=== PATIENT | male | born 1955 | race Caucasian/White ===

== ENCOUNTER → 2020-04-29 15:45 | Outpatient (CLI) | payer OTHER, SELFPAY ==
[2020-04-29 14:34] VITALS: BMI 26.2
[2020-04-29 17:34] LABS: PSA,Total - Annual Screen 2.08 ng/mL (0.00-4.00)
== END ==
PROVIDERS: PCP Internal Medicine; Referring Provider Internal Medicine; Visit Provider Internal Medicine
DX: Z12.5 Encounter for screening for malignant neoplasm of prostate (principal)
CPT/HCPCS: 36415; 84153; G0103

== ENCOUNTER → 2020-05-19 09:33 | Outpatient (CLI) | payer OTHER, SELFPAY ==
[2020-04-29 14:34] VITALS: BMI 26.2
[2020-05-19 12:58] LABS: Absolute Lymphocyte Count 1.57 X10^3/uL (0.83-4.51); Absolute Neutrophil Count 3.8 X10^3/uL (2.0-7.7); Basophil# 0.04 X10^3/uL; Basophil% 0.6 % (0-1); Eosinophil# 0.27 X10^3/uL; Eosinophils% 4.3 % (0-5); Hemoglobin 15.6 g/dL (13.0-16.5); Lymphocyte # 1.57 X10^3/ul (4.0); Mean Corp Hgb Conc 31.8 g/dL (32-36); Mean Corpuscular Hgb 28.1 pg (27.0-32.0); Mean Corpuscular Volume 88.3 fL (80-94); Mean Platelet Vol. 11.2 fl (6.2-12.0); Monocyte# 0.55 X10^3/uL; Monocyte% 8.8 % (0-10); NRBC Flagged by Analyzer 0 % (0-5); Neutrophil # 3.82 X10^3/uL (2.7-7.7); Platelet Count 177 K/mm3 (150-450); RBC Distribution Width CV 12.5 % (11.6-14.6); RBC Distribution Width SD 40.8 fl (35.1-43.9); Red Blood Count 5.55 M/mm3 (4.6-6.2); White Blood Count 6.3 K/mm3 (4.4-11.0)
[2020-05-19 13:33] LABS: Hemoglobin A1c 6.2 % (3.8-5.6)
[2020-05-19 13:46] LABS: ALB/GLOB Ratio 0.9 RATIO (0.9-2.4); AST(SGOT) 9 U/L (15-37); Alanine Aminotransfer ALT/SGPT 27 U/L (16-61); Albumin, Serum 3.6 g/dL (3.2-5.0); Alkaline Phosphatase 73 U/L (45-117); Anion Gap 3 (5-15); BUN 10 mg/dL (7-18); BUN/Creat Ratio 10.6 RATIO (10-20); Calcium,Total 9.3 mg/dL (8.5-10.1); Chloride 105 mmol/L (98-107); Cholesterol 230 mg/dL (200); Creatinine, Serum 0.94 mg/dL (0.70-1.30); EST Glomerular Filtration Rate 85 mL/min (>60); Est Glom Filt Rate - Afr Amer 103 mL/min (>60); Glucose 95 mg/dL (74-106); High Density Lipoprotein 45 mg/dL; Potassium 4.3 mmol/L (3.5-5.1); Protein, Total 7.6 g/dL (6.4-8.2); Sodium Level 141 mmol/L (136-145); Triglycerides 293 mg/dL; Very Low Density Lipoprotein 59 mg/dL (5-40)
== END ==
PROVIDERS: PCP Internal Medicine; Referring Provider Internal Medicine; Visit Provider Internal Medicine
DX: E78.5 Hyperlipidemia, unspecified (principal); R73.9 Hyperglycemia, unspecified
CPT/HCPCS: 36415; 80053; 80061; 83036; 85025

== ENCOUNTER → 2021-10-29 | Outpatient (CLI) | payer OTHER, SELFPAY ==
[2021-10-29 15:18] LABS: Absolute Lymphocyte Count 1.74 X10^3/uL (0.83-4.51); Absolute Neutrophil Count 3.7 X10^3/uL (2.0-7.7); Basophil# 0.02 X10^3/uL; Basophil% 0.3 % (0-1); Eosinophil# 0.17 X10^3/uL; Eosinophils% 2.7 % (0-5); Hematocrit 43.5 % (40-54); Hemoglobin 14.1 g/dL (13.0-16.5); Lymphocyte # 1.74 X10^3/ul (0.83-4.51); Lymphocyte % 28.1 % (19-41); Mean Corp Hgb Conc 32.4 g/dL (32-36); Mean Corpuscular Hgb 27.8 pg (27.0-32.0); Mean Corpuscular Volume 85.8 fL (80-94); Mean Platelet Vol. 10.5 fl (6.2-12.0); Monocyte# 0.51 X10^3/uL; Monocyte% 8.2 % (0-10); NRBC Flagged by Analyzer 0 % (0-5); Neutrophil # 3.73 X10^3/uL (2.7-7.7); Neutrophil % 60.4 % (47-70); Platelet Count 233 K/mm3 (150-450); RBC Distribution Width CV 12.9 % (11.6-14.6); RBC Distribution Width SD 39.9 fl (35.1-43.9); Red Blood Count 5.07 M/mm3 (4.6-6.2); White Blood Count 6.2 K/mm3 (4.4-11.0)
[2021-10-29 15:28] LABS: Vitamin D,25 Hydroxy 23.5 ng/mL
[2021-10-29 15:32] LABS: Hemoglobin A1c 6.2 % (3.8-5.6)
[2021-10-29 15:33] LABS: ALB/GLOB Ratio 0.8 RATIO (0.9-2.4); AST(SGOT) 14 U/L (15-37); Alanine Aminotransfer ALT/SGPT 23 U/L (16-61); Albumin, Serum 3.3 g/dL (3.2-5.0); Alkaline Phosphatase 64 U/L (45-117); Anion Gap 6 (5-15); BUN 10 mg/dL (7-18); BUN/Creat Ratio 10.7 RATIO (10-20); Calcium,Total 8.7 mg/dL (8.5-10.1); Chloride 103 mmol/L (98-107); Cholesterol 195 mg/dL (200); Creatinine, Serum 0.94 mg/dL (0.70-1.30); EST Glomerular Filtration Rate 85 mL/min (>60); Est Glom Filt Rate - Afr Amer 103 mL/min (>60); Free T3 2.9 pg/mL (2.18-3.98); Globulin 4.1 g/dL (2.2-4.2); Glucose 83 mg/dL (74-106); High Density Lipoprotein 45 mg/dL; PSA,Total - Annual Screen 2.05 ng/mL (0.00-4.00); Protein, Total 7.4 g/dL (6.4-8.2); Sodium Level 139 mmol/L (136-145); Thyroid Stim Hormone (TSH) 0.85 uIU/mL (0.358-3.74); Triglycerides 96 mg/dL; Very Low Density Lipoprotein 19 mg/dL (5-40)
== END | disposition home or self-care (01) ==
LOC: BIMLAB 14:04
PROVIDERS: PCP Internal Medicine; Referring Provider Internal Medicine; Visit Provider Internal Medicine
DX: R73.09 Other abnormal glucose (principal); E78.2 Mixed hyperlipidemia; E55.9 Vitamin D deficiency, unspecified; Z12.5 Encounter for screening for malignant neoplasm of prostate
CPT/HCPCS: 36415; 80053; 80061; 82306; 83036; 84153; 84439; 84443; 84481; 85025; G0103

== ENCOUNTER → 2021-12-01 | Outpatient (CLI) | payer OTHER, SELFPAY ==
--- NOTE | 2021-12-01 08:01 | RAD_ITS ---
STUDY: AIR CONTRAST UPPER GI SERIES and esophagram. REASON FOR EXAM: Male, 65 years old. R13.10 - Dysphagia, unspecified FLUOROSCOPY TIME (if supplied): (54 seconds) minutes/seconds. 20 one images were obtained. TECHNIQUE: SINGLE CONTRAST AND AIR CONTRAST FLUOROSCOPIC IMAGES. COMPARISON: None. FINDINGS: The cervical esophagus demonstrates normal motility without aspiration. There is no stricture or extrinsic mass effect. No intraluminal polypoid mass is identified. The thoracic esophagus distends well without stricture or mucosal fold thickening. No mucosal ulcerations are identified. There is no extrinsic mass effect. There are no diverticula. Circumferential narrowing at the gastroesophageal junction. Endoscopic correlation recommended. The patient ingested a 12 mm tablet of barium. The tablet is trapped at the gastroesophageal junction. Small hiatal hernia without gastroesophageal reflux. The stomach distends well without mucosal fold thickening or mucosal ulceration. There is no intraluminal mass. The duodenal bulb is freely distensible without deformity or ulceration. The duodenal sweep is normal in position and caliber. RAD/Upper GI w/BA Swallow IMPRESSION: Small sliding hiatal hernia without gastroesophageal reflux. The ingested 12 mm tablet of barium is trapped at the gastroesophageal junction. Endoscopic correlation recommended. Electronically Signed: Chon Hatch MD at 14:59 EDT ,
== END | disposition home or self-care (01) ==
PROVIDERS: PCP Internal Medicine; Referring Provider Surgery; Visit Provider Surgery
DX: R13.10 Dysphagia, unspecified (principal)
CPT/HCPCS: 74246

== ENCOUNTER 2022-01-29 05:53 | Day surgery (SDC) | payer OTHER, SELFPAY ==
[2022-01-29] VITALS (7 sets, daily range): BP systolic 88–136; BP diastolic 48–79; PULSE 74–77; RESP 16–18; TEMP 36.6–36.9; O2SAT 91–97; BMI 25.0
--- NOTE | 2022-01-29 06:05 | PCM.HP.BLA ---
History and Physical Date of Admission: 01/29/22 Visit Reasons:?Reflux issues swallowing Chief Complaint: dysphagia Roll Reclaimer Required: No Is patient in pain?: No Allergies No Known Allergies Allergy (Unverified 11/17/21 13:21) Medications lutein 20 mg capsule 20 mg PO DAILY 04/29/20 [History Confirmed 11/17/21] multivitamin,rs-vuvz-[id number] 1 tab PO DAILY 04/29/20 [History Confirmed 11/17/21] cholecalciferol (vitamin D3) 25 mcg (1,000 unit) capsule 25 mcg PO DAILY 11/17/21 [History Confirmed 11/17/21] PFSH Medical History? Duodenal ulcer History of COVID-19 Surgical History? H/O vasectomy History of cataract extraction Family History? Other Arthritis Diabetes Melanoma blood clot Social History? Smoking Status:? Former smoker alcohol intake:? never substance use type:? does not use what type of physical activity do you participate in:? none HPI HPI HPI: NITZA WARE, is a 65 M who presents to the office today for swallowing issues.? The patient is referred by Dr. Susie Giron and a written copy of my surgical consult and recommendations will return to him.? For many many years patient has had intermittent reflux problems.? Heartburn.? He would intermittently take Tums.? More recently he has [place] at work and uses that at lunchtime a couple times per week.? He has never had an upper endoscopy.? Over the past 2 years he has had more trouble swallowing.? Particular dry meat seems to get stuck.? He gets a sense that his throat spasms and he has to relax to let the food go down.? On a few occasions he is regurgitated undigested food.? He has had no family history of esophageal or gastric or colon cancer.? His father did have prostate cancer.? The patient himself is never had a colonoscopy. He was a cigarette smoker.? He quit 10 years ago.? He denies bright red blood per rectum or melena.? No abdominal pain.? No unexpected weight loss. Laboratory as of October 29, 2021 shows a white blood cell count of 6.2 with a hemoglobin 14.1 hematocrit 43.5 platelet count 233,000.? BUN 10 and creatinine 0.94. ROS General General: No weight change, appetite, fatigue, colon cancer, breast cancer or weakness HEENT HEENT: Yes difficulty swallowing and eye surgery; No eye injury, swollen glands or hoarseness Endo Endocrine: No thyroid disease, diabetes mellitus, thyroid cancer, Hair loss, heat intolerance or cold intolerance Skin Skin: No rash or changing moles Breast Breast: No left breast lump, right breast lump, nipple discharge, breast pain, abnormal mammogram, abnormal US or breast enlargement Musc Musculoskeletal: Yes rheumatoid arthritis; No back problems, arthritis, gout or joint pain Cardio Cardiovascular: No murmur, pacemaker, heart disease, atrial fibrillation, high blood pressure, heart attack, heart stent, palpitations, shortness of breat with exertion or chest pain Psych Psychiatric: No depression, anxiety or hearing voices Resp Respiratory: No shortness of breath, No sleep apnea, No cough, No COPD, No asthma, No emphysema and No wheezing Gastro Gastrointestinal: No abdominal pain, No nausea or vomiting, No diarrhea, No constipation, No blood in stool, Yes acid reflux, No hemorrhoids, No ulcers, No gallbladder problem and No black,tarry stools Alfred Hematologic: No blood thinners, No blood disorders, No bleeding, No anemia and No blood clots Neuro Neurologic: No system reviewed and no additional complaints, except as documented, No as per HPI, No abnormal gait, No abnormal hearing, No abnormal movements, No abnormal speech, No behavioral changes, No burning sensations, No confusion, No convulsions, No disequilibrium, No dizziness, No localized weakness, No frequent falls, No headache(s), No lack of coordination, No loss of vision, No memory loss, No numbness, No other visual disturbances, No radicular pain, No restless legs, No sensory deficit, No syncope, No tingling, No tremor(s), No weakness and No other Exam Const General: cooperative, healthy appearing, comfortable and no acute distress Orientation: alert and awake [facility] Head: normal to inspection Chest Chest palpation & inspection: normal inspection of the chest Resp Effort & Inspection: normal respiratory effort Auscultation: clear to auscultation bilaterally Cardio Rate: regular rate Rhythm: regular rhythm GI Palpation: soft and no hepatosplenomegaly Skin General: no rashes or lesions noted Neuro General: patient alert and patient awake Extrem General: no calf tenderness Psych Appearance: grossly normal Assessment and Plan Assessment and Plan (1) Dysphagia: ?Status:?Acute ?Qualifiers: ?Dysphagia type:?esophageal phase? Qualified Code(s):?R13.19 - Other dysphagia (2) Screening for intestinal cancer: ?Status:?Acute ?Plan - Dr. Charli Broussard MD: Patient's esophageal dysphagia sounds like possible Zenker's diverticulum possible reflux disease or possible spasm.? I propose a upper GI contrast study followed by a esophagogastroduodenoscopy with biopsy and if stricture identified dilatation.? The patient is aware of technique, benefit, risk, alternatives.? He has had an opportunity to ask and have questions answered.? We will proceed with scheduling as noted.? It is not clear at this time whether he will benefit from future esophageal manometry.? We will base that off on the diagnostic maneuvers above. The patient also is age 65.? He has never had a screening colonoscopy.? I recommend to him a screening colonoscopy with possible biopsy or polypectomy as indicated.? He also has had an opportunity to ask and have questions answered.? We will combine this procedure. Very much appreciate the kind opportunity of assisting with surgical care On December 01, 2021 the patient had a barium swallow. The barium tablet became stuck at the EG junction. There was a small sliding hiatal hernia. The patient may have active reflux esophagitis possibly with a Schatzki ring. He is aware that if indicated esophageal dilatation will be performed. Copy: Dr. Susie Broussard M.D., F.A.C.S. December 01, 2021 STUDY:? AIR CONTRAST UPPER GI SERIES? and esophagram. REASON FOR EXAM:? Male, 65 years old.? R13.10 - Dysphagia, unspecified FLUOROSCOPY TIME (if supplied): (54 seconds) minutes/seconds.? 20 one images were obtained. TECHNIQUE:? SINGLE CONTRAST AND AIR CONTRAST FLUOROSCOPIC IMAGES. COMPARISON:? None. FINDINGS: The cervical esophagus demonstrates normal motility without aspiration. There is no stricture or extrinsic mass effect.? No intraluminal polypoid mass is identified. The thoracic esophagus distends well without stricture or mucosal fold thickening.? No mucosal ulcerations are identified.? There is no extrinsic mass effect.? There are no diverticula. Circumferential narrowing at the gastroesophageal junction.? Endoscopic correlation recommended. The patient ingested a 12 mm tablet of barium.? The tablet is trapped at the gastroesophageal junction. Small hiatal hernia without gastroesophageal reflux. The stomach distends well without mucosal fold thickening or mucosal ulceration.? There is no intraluminal mass.? The duodenal bulb is freely distensible without deformity or ulceration.? The duodenal sweep is normal in position and caliber. RAD/Upper GI w/BA Swallow IMPRESSION: Small sliding hiatal hernia without gastroesophageal reflux. The ingested 12 mm tablet of barium is trapped at the gastroesophageal junction.? Endoscopic correlation recommended. ? Electronically Signed: Chon Hatch MD at 14:59 EDT ,
[2022-01-29] MEDS: Lactated Ringers 1,000 ML 15 ML IV (06:31)
--- NOTE | 2022-01-29 06:51 | SUR.PREOP ---
pt daniel approx 800cc tap water enema and held for about 10min. up to BR indep. results in toilet are are muddy brown. unable to see bottom of toilet bow.
--- NOTE | 2022-01-29 07:00 | EGD_PTH ---
PATIENT: NITZA WARE LOC: EN U#:[id number] AGE/SX: 66/M ROOM: RE01/29/[address]: Dr. Charli Broussard MD : 1955 BED: DIS: 01/29/2022 SPEC #: [id number] RECD: 01/29/22 10:56 STATUS: MARSHA DONOVAN #: [id number] ZULEIMA: 01/29/22 07:[address]: Charli Broussard DEPT: SURGICAL PATHOLOGY RECD BY: Marisol Gibbs ENTERED: 01/29/22 11:17 SP TYPE: EGD BIOPSY OT DR: Dr. Susie Giron MD Tissues: A - Duodenum, NOS B - Gastric mucous membrane C - Esophagus, NOS Procedures: Special Stain Group II Surgery Specimen Level IV Alcian Blue/PAS (control) HEADER OPERATION: Colonoscopy, EGD (MAC), dilatation, biopsies PRE-OP DIAGNOSIS: Dysphagia, screening TISSUE SUBMITTED: A ? Duodenum biopsy, B ? Gastric antrum biopsy for H. pylori and pathology, C ? Distal esophagus biopsy MICROSCOPIC DIAGNOSIS A. Duodenum, biopsy: A fragment of duodenal mucosa with mild Domenica gland hyperplasia. B. Gastric antrum, biopsy: Mild gastritis. See microscopic description and comment. C. 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 Moderate chronic inflammation and minimal acute inflammation. Negative for dysplasia. See comment. SJ:meghan 02/01/2022 COMMENT B. The results of immunohistochemistry for Helicobacter pylori will be reported separately ([id number]). C. Immunohistochemistry ([id number]) for P53 and Ki-67 will be performed and results will be reported separately. Alcian blue/PAS stain with matched control is used in the evaluation of the specimen. MICROSCOPIC DESCRIPTION Slides are reviewed. B. The specimen shows fragments of gastric mucosa with chronic inflammatory cell infiltrates in the lamina propria consisting of lymphocytes and plasma cells, consistent with mild chronic gastritis. GROSS DESCRIPTION A - Received in fixative is one container labeled with the patient's name and designated duodenum. The specimen consists of one irregular fragment of light cabello soft tissue that measures 0.5 x 0.3 x 0.1 cm. The specimen is totally submitted in one cassette. B - Received in fixative is one container labeled with the patient's name and designated gastric antrum. The specimen consists of one irregular fragment of light cabello soft tissue that measures 0.3 x 0.3 x 0.1 cm. The specimen is totally submitted in one cassette. C - Received in fixative is one container labeled with the patient's name and designated distal esophagus. The specimen consists of multiple irregular fragments of light acbello soft tissue that in aggregate measure 2.2 x 1 x 0.1 cm. The specimen is totally submitted in one cassette. / AM:meghan 01/29/2022 TC:3 CPT: 91093 x3, 12935
--- NOTE | 2022-01-29 07:00 | IMM_PTH ---
PATIENT: NITZA WARE LOC: EN U#:[id number] AGE/SX: 66/M ROOM: RE01/29/[address]: Dr. Charli Broussard MD : 1955 BED: DIS: 01/29/2022 SPEC #: [id number] RECD: 01/29/22 12:51 STATUS: MARSHA RESanto #: [id number] ZULEIMA: 01/29/22 07:[address]: Charli Broussard DEPT: IMMUNOHISTOCHEMISTRY RECD BY: Violeta Bell ENTERED: 01/29/22 12:51 SP TYPE: IMMUNO OTHR DR: Dr. Susie Giron MD Tissues: B - Stomach, NOS Procedures: H Pylori (initial) PHYSICIAN & [place] [id number] SPECIMEN INFORMATION: Tissue Source: B ? Gastric antrum biopsy, C ? Distal esophagus biopsy Clinical Info: Dysphagia, screening Specimen Number: [id number] B & C CPT code: 36360 x2, 60124 METHODOLOGY: Deparaffinized sections of prefer/formalin-fixed tissue or PAP/DQ stained slides are incubated with monoclonal/polyclonal antibodies/oligonucleotide probes. Localization is made via biotin free immunoperoxidase method. Appropriate controls are performed and reacted as expected. Results on target cell population are indicated in the following table: RESULTS: ANTIBODY / CLONE RESULT Block B H Pylori (polyclonal) negative Block C P53 (DO-7) negative Ki-67 (30-9) positive, low These tests were developed and their performance characteristics determined by [facility]. They may not have been cleared or approved by the U.S. Food and Drug Administration. The FDA has determined that such clearance or approval is not necessary. The above immunohistochemical/dualISH markers are ordered and reviewed by the Pathologist. INTERPRETATION: B. Gastric antrum, biopsy: Negative for Helicobacter pylori organisms. C. Distal esophagus, biopsy: Negative for dysplasia. SJ:meghan 02/01/2022
--- NOTE | 2022-01-29 07:44 | SUR.PREOP ---
at 0658 2nd 1000cc tap water enema given. pt daniel well. up to BR independently. Gait steady.
--- NOTE | 2022-01-29 07:54 | OP.EGD_ITS ---
Patient Name: Robbin Hicks Procedure Date: 01/29/2022 6:53 AM Date of : 1955 Age: 66 Procedure: Upper GI endoscopy Indications: Dysphagia Providers: Charli Broussard MD Medicines: See the Anesthesia note for documentation of the administered medications Complications: No immediate complications. Procedure: Pre-Anesthesia Assessment: - Prior to the procedure, a History and Physical was performed, and patient medications and allergies were reviewed. The patient's tolerance of previous anesthesia was also reviewed. The risks and benefits of the procedure and the sedation options and risks were discussed with the patient. All questions were answered, and informed consent was obtained. Prior Anticoagulants: The patient has taken no previous anticoagulant or antiplatelet agents. ASA Grade Assessment: II - A patient with mild systemic disease. After reviewing the risks and benefits, the patient was deemed in satisfactory condition to undergo the procedure. After obtaining informed consent, the endoscope was passed under direct vision. Throughout the procedure, the patient's blood pressure, pulse, and oxygen saturations were monitored continuously. The gastroscope was introduced through the mouth, and advanced to the second part of duodenum. The upper GI endoscopy was accomplished without difficulty. The patient tolerated the procedure well. Scope In: 7:13:56 AM Scope Out: 7:31:06 AM Total Procedure Duration Time 0 hours 17 minutes 10 seconds Findings: There were esophageal mucosal changes suggestive of long-segment Doherty's esophagus present in the lower third of the esophagus. The maximum longitudinal extent of these mucosal changes was 4 cm in length. Mucosa was biopsied with a cold forceps for histology. One specimen bottle was sent to pathology. A medium-sized hiatal hernia was present. A mild Schatzki ring was found at the gastroesophageal junction. A TTS dilator was passed through the scope. Dilation with an 18-19-20 mm balloon dilator was performed to 20 mm. The dilation site was examined and showed mild improvement in luminal narrowing. The Z-line was irregular and was found 37 cm from the incisors. Diffuse mildly erythematous mucosa without bleeding was found in the gastric antrum. Biopsies were taken with a cold forceps for histology. Diffuse mildly erythematous mucosa without active bleeding and with no stigmata of bleeding was found in the duodenal bulb. Biopsies were taken with a cold forceps for histology. 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 Biopsied. - Medium-sized hiatal hernia. - Mild Schatzki ring. Dilated. - Z-line irregular, 37 cm from the incisors. - Erythematous mucosa in the antrum. Biopsied. - Erythematous duodenopathy. Biopsied. Recommendation: - Discharge patient to home. - Resume previous diet. - Continue present medications. - Use Prilosec (omeprazole) 40 mg PO daily. - Telephone my office for pathology results in 1 week. Procedure Code(s): --- Professional --- 44233, Esophagogastroduodenoscopy, flexible, transoral; with transendoscopic balloon dilation of esophagus (less than 30 mm diameter) 08477, 59, Esophagogastroduodenoscopy, flexible, transoral; with biopsy, single or multiple Diagnosis Code(s): --- Professional --- K22.8, Other specified diseases of esophagus K44.9, Diaphragmatic hernia without obstruction or gangrene K22.2, Esophageal obstruction K31.89, Other diseases of stomach and duodenum R13.10, Dysphagia, unspecified CPT copyright 2017 [employer]. All rights reserved. The codes documented in this report are preliminary and upon belt builder helper review may be revised to meet current compliance requirements. Charli Broussard MD 01/29/2022 7:54:12 AM This report has been signed electronically. Number of Addenda: 0 Note Initiated On: 01/29/2022 6:53 AM
--- NOTE | 2022-01-29 07:55 | OP.CCLET_ITS ---
01/29/2022 Susie Giron [facility] [address] [place] [address] Re : Upper GI endoscopy procedure for Robbin Hicks Dear Dr. Giron This procedure was performed on Saturday, January 29, 2022. My impressions and recommendations are as follows: Impressions : - Esophageal mucosal changes suggestive of long-segment Doherty's esophagus. Biopsied. - Medium-sized hiatal hernia. - Mild Schatzki ring. Dilated. - Z-line irregular, 37 cm from the incisors. - Erythematous mucosa in the antrum. Biopsied. - Erythematous duodenopathy. Biopsied. Recommendations : - Discharge patient to home. - Resume previous diet. - Continue present medications. - Use Prilosec (omeprazole) 40 mg PO daily. - Telephone my office for pathology results in 1 week. My findings are described in the full procedure note, which is enclosed. If I can be of further assistance, please feel free to contact me at Doctor phone number(s): Work: . Sincerely, Charli Broussard MD 01/29/2022 7:54:12 AM This report has been signed electronically.
--- NOTE | 2022-01-29 07:59 | OP.COLON_ITS ---
Patient Name: Robbin Hicks Procedure Date: 01/29/2022 7:32 AM Date of : 1955 Age: 66 Procedure: Colonoscopy Indications: Screening for colorectal malignant neoplasm Providers: Charli Broussard MD Medicines: See the Anesthesia note for documentation of the administered medications Patient Profile: Last Colonoscopy: none. The patient's first colonoscopy is today. Complications: No immediate complications. Procedure: Pre-Anesthesia Assessment: - Prior to the procedure, a History and Physical was performed, and patient medications and allergies were reviewed. The patient's tolerance of previous anesthesia was also reviewed. The risks and benefits of the procedure and the sedation options and risks were discussed with the patient. All questions were answered, and informed consent was obtained. Prior Anticoagulants: The patient has taken no previous anticoagulant or antiplatelet agents. ASA Grade Assessment: II - A patient with mild systemic disease. After reviewing the risks and benefits, the patient was deemed in satisfactory condition to undergo the procedure. After I obtained informed consent, the scope was passed under direct vision. Throughout the procedure, the patient's blood pressure, pulse, and oxygen saturations were monitored continuously. The colonoscope was introduced through the anus and advanced to the cecum, identified by appendiceal orifice and ileocecal valve. The colonoscopy was performed without difficulty. The patient tolerated the procedure well. The quality of the bowel preparation was good. The ileocecal valve and the appendiceal orifice were photographed. Scope In: 7:34:24 AM Scope Withdrawal Time 0 hours 6 minutes 43 seconds Scope Out: 7:46:36 AM Total Procedure Duration Time 0 hours 12 minutes 12 seconds Findings: Hemorrhoids were found on perianal exam. Normal prostate Scattered diverticula were found in the sigmoid colon. The exam was otherwise without abnormality. Impression: - Hemorrhoids found on perianal exam. - Diverticulosis in the sigmoid colon. - The examination was otherwise normal. - No specimens collected. Recommendation: - Discharge patient to home. - Resume previous diet. - Continue present medications. - Repeat colonoscopy in 10 years for screening purposes. Procedure Code(s): --- Professional --- 49570, Colonoscopy, flexible; diagnostic, including collection of specimen(s) by brushing or washing, when performed (separate procedure) Diagnosis Code(s): --- Professional --- Z12.11, Encounter for screening for malignant neoplasm of colon K64.9, Unspecified hemorrhoids K57.30, Diverticulosis of large intestine without perforation or abscess without bleeding CPT copyright 2017 [employer]. All rights reserved. The codes documented in this report are preliminary and upon city alderman review may be revised to meet current compliance requirements. Charli Broussard MD 01/29/2022 7:58:46 AM This report has been signed electronically. Number of Addenda: 0 Note Initiated On: 01/29/2022 7:32 AM
--- NOTE | 2022-01-29 08:00 | OP.CCLET_ITS ---
01/29/2022 Susie Giron [facility] [address] [place] [address] Re : Colonoscopy procedure for Robbin Hicks Dear Dr. Giron This procedure was performed on Saturday, January 29, 2022. My impressions and recommendations are as follows: Impressions : - Hemorrhoids found on perianal exam. - Diverticulosis in the sigmoid colon. - The examination was otherwise normal. - No specimens collected. Recommendations : - Discharge patient to home. - Resume previous diet. - Continue present medications. - Repeat colonoscopy in 10 years for screening purposes. My findings are described in the full procedure note, which is enclosed. If I can be of further assistance, please feel free to contact me at Doctor phone number(s): Work: . Sincerely, Charli Broussard MD 01/29/2022 7:58:46 AM This report has been signed electronically.
== END 2022-01-29 08:56 | disposition home or self-care (01) ==
LOC: EN 05:54 → AC 05:56
PROVIDERS: PCP Internal Medicine; Referring Provider Internal Medicine; Visit Provider Surgery
PROC: 0DJD8ZZ Inspection of Lower Intestinal Tract, Via Natural or Artificial Opening Endoscopic (ICD-10-PCS; CPT 45378; principal; 2022-01-29 06:55)
DX: Z12.11 Encounter for screening for malignant neoplasm of colon (principal); K22.70 Barrett's esophagus without dysplasia; K29.50 Unspecified chronic gastritis without bleeding; K22.2 Esophageal obstruction; K44.9 Diaphragmatic hernia without obstruction or gangrene; K31.89 Other diseases of stomach and duodenum; K57.30 Diverticulosis of large intestine without perforation or abscess without bleeding; K64.9 Unspecified hemorrhoids; Z86.16 Personal history of COVID-19; Z87.891 Personal history of nicotine dependence
CPT/HCPCS: 43239; 43249; 45378; 88305; 88313; 88342; J7120; J2405

== ENCOUNTER → 2023-12-10 | Outpatient (CLI) | payer OTHER, SELFPAY ==
[2023-12-10 08:11] LABS: Absolute Neutrophil Count 3.4 X10^3/uL (2.0-7.7); Basophil# 0.04 X10^3/uL; Basophil% 0.7 % (0-1); Eosinophil# 0.33 X10^3/uL; Eosinophils% 5.7 % (0-5); Hematocrit 45.3 % (40-54); Hemoglobin 14.6 g/dL (13.0-16.5); Lymphocyte % 26.1 % (19-41); Mean Corp Hgb Conc 32.2 g/dL (32-36); Mean Corpuscular Hgb 27.7 pg (27.0-32.0); Mean Platelet Vol. 10.4 fl (6.2-12.0); Monocyte% 8.7 % (0-10); NRBC Flagged by Analyzer 0 % (0-5); Neutrophil # 3.37 X10^3/uL (2.7-7.7); Neutrophil % 58.6 % (47-70); Platelet Count 212 K/mm3 (150-450); RBC Distribution Width CV 12.8 % (11.6-14.6); RBC Distribution Width SD 40.1 fl (35.1-43.9); Red Blood Count 5.27 M/mm3 (4.6-6.2); White Blood Count 5.8 K/mm3 (4.4-11.0)
[2023-12-10 08:53] LABS: ALB/GLOB Ratio 0.8 RATIO (0.9-2.4); AST(SGOT) 20 U/L (15-37); Alanine Aminotransfer ALT/SGPT 29 U/L (16-61); Albumin, Serum 3.3 g/dL (3.2-5.0); Alkaline Phosphatase 76 U/L (45-117); Anion Gap 5 (5-15); BUN 9 mg/dL (7-18); BUN/Creat Ratio 9.6 RATIO (10-20); Calcium,Total 9.3 mg/dL (8.5-10.1); Chloride 103 mmol/L (98-107); Cholesterol 253 mg/dL (200); Creatinine, Serum 0.94 mg/dL (0.70-1.30); EST Glomerular Filtration Rate 85 mL/min (>60); Est Glom Filt Rate - Afr Amer 103 mL/min (>60); Glucose 151 mg/dL (74-106); High Density Lipoprotein 38 mg/dL; PSA,Total - Annual Screen 1.65 ng/mL (0.00-4.00); Potassium 4.6 mmol/L (3.5-5.1); Protein, Total 7.3 g/dL (6.4-8.2); Sodium Level 138 mmol/L (136-145); Thyroid Stim Hormone (TSH) 1.46 uIU/mL (0.358-3.74); Triglycerides 232 mg/dL; Very Low Density Lipoprotein 46 mg/dL (5-40)
[2023-12-12 08:08] LABS: Vitamin D,25 Hydroxy 28.7 ng/mL
== END | disposition home or self-care (01) ==
LOC: LAB 07:47
PROVIDERS: PCP Internal Medicine; Referring Provider Internal Medicine; Visit Provider Internal Medicine
DX: Z13.220 Encounter for screening for lipoid disorders (principal); K22.70 Barrett's esophagus without dysplasia; E78.5 Hyperlipidemia, unspecified; R73.09 Other abnormal glucose; E55.9 Vitamin D deficiency, unspecified; Z12.5 Encounter for screening for malignant neoplasm of prostate
CPT/HCPCS: 36415; 80053; 80061; 82306; 84153; 84443; 85025; G0103

== ENCOUNTER → 2024-12-12 | Outpatient (CLI) | payer MEDICARE, SELFPAY ==
[2024-12-12 08:47] LABS: Absolute Lymphocyte Count 1.49 X10^3/uL (0.83-4.51); Basophil# 0.03 X10^3/uL; Basophil% 0.5 % (0-1); Eosinophil# 0.38 X10^3/uL; Eosinophils% 6.8 % (0-5); Hemoglobin 14.2 g/dL (13.0-16.5); Lymphocyte # 1.49 X10^3/ul (0.83-4.51); Lymphocyte % 26.8 % (19-41); Mean Corp Hgb Conc 33.8 g/dL (32-36); Mean Corpuscular Hgb 28.4 pg (27.0-32.0); Mean Platelet Vol. 10.3 fl (6.2-12.0); Monocyte# 0.61 X10^3/uL; NRBC Flagged by Analyzer 0 % (0-5); Neutrophil # 3.04 X10^3/uL (2.7-7.7); Neutrophil % 54.7 % (47-70); Platelet Count 234 K/mm3 (150-450); RBC Distribution Width CV 12.9 % (11.6-14.6); RBC Distribution Width SD 39.5 fl (35.1-43.9); White Blood Count 5.6 K/mm3 (4.4-11.0)
[2024-12-12 09:53] LABS: Hemoglobin A1c 9.4 % (<=5.6)
[2024-12-12 10:08] LABS: ALB/GLOB Ratio 1.3 RATIO (0.9-2.4); AST(SGOT) 19 U/L (<=37); Alanine Aminotransfer ALT/SGPT 21 U/L (<=46); Albumin, Serum 3.9 g/dL (3.4-4.8); Alkaline Phosphatase 85 U/L (40-129); Anion Gap 9 (5-15); BUN 9 mg/dL (4-19); BUN/Creat Ratio 10.6 RATIO (10-20); Calcium,Total 9.2 mg/dL (7.6-11.0); Carbon Dioxide 27.3 mmol/L (21.0-32.0); Chloride 102 mmol/L (98-108); Cholesterol 239 mg/dL (<=200); Creatinine, Serum 0.89 mg/dL (0.70-1.20); EST Glomerular Filtration Rate 93 (>60); Globulin 3.1 g/dL (2.2-4.2); Glucose 193 mg/dL (70-99); High Density Lipoprotein 40 mg/dL; Low Density Lipoprotein Calc. 160 mg/dL; Potassium 4.3 mmol/L (3.3-5.1); Sodium Level 138 mmol/L (133-145); Triglycerides 194 mg/dL; Very Low Density Lipoprotein 39 mg/dL (5-40); cholesterol:hdl ratio screen 5.98
[2024-12-12 10:10] LABS: PSA,Total - Annual Screen 1.34 ng/mL (0.02-4.00); Vitamin D,25 Hydroxy 24.5 ng/mL (30-100)
== END | disposition home or self-care (01) ==
LOC: LAB 08:19
PROVIDERS: PCP Internal Medicine; Referring Provider Internal Medicine; Visit Provider Internal Medicine
DX: Z12.5 Encounter for screening for malignant neoplasm of prostate (principal); K22.2 Esophageal obstruction; R73.09 Other abnormal glucose; E78.5 Hyperlipidemia, unspecified; K44.9 Diaphragmatic hernia without obstruction or gangrene; K21.9 Gastro-esophageal reflux disease without esophagitis; E55.9 Vitamin D deficiency, unspecified
CPT/HCPCS: 36415; 80053; 80061; 82306; 83036; 84153; 85025; G0103

== ENCOUNTER 2024-12-25 09:18 | Day surgery (SDC) | payer MEDICARE, SELFPAY ==
[2024-12-25] VITALS (8 sets, daily range): BP systolic 106–118; BP diastolic 74–79; PULSE 74–80; RESP 16; TEMP 36.6–36.8; O2SAT 93–97; BMI 27.0
[2024-12-25] MEDS: Lactated Ringers 1,000 ML 15 ML IV (10:04)
--- NOTE | 2024-12-25 10:08 | PRE.ANES_ITS ---
ASA Classification* ASA Classification ASA Classification: 3 Assessment & Plan Anesthesia* Anesthesia Assessment Anesthesia Assessment: Discussed sedation and/or anesthesia options, risks, benefits, and alternatives with patient/parents/legal guardian/POA. Questions invited. The patient/parents/legal guardian/POA seems to understand and agrees to proceed with anesthesia plan. Reviewed the physical assessment, medical history, allergy history and patient home medications list prior to surgery/procedure/anesthetic and documented any changes. Performed airway and anesthesia risk assessments. Anesthesia Type Anesthesia Type: MAC History Source History Obtained from:: Patient and Chart Anesthesia Focused Assessment* Temperature: 98.2 F Pulse Rate: 78 Blood Pressure: 106/79 Respiratory Rate: 16 Pulse Ox: 97 Oxygen Delivery Method: Room Air Airway Assessment Mouth opens: >3 cm Mallampati Score: II Teeth Condition: Intact Neck Range of motion (ROM): Full ROM Labs Anesthesia Preop lab: CBC WBC 5.6 K/mm3 (4.4-11.0) 12/12/24 08:34 12/12/24 RBC 5.00 M/mm3 (4.6-6.2) 12/12/24 08:34 12/12/24 Hgb 14.2 g/dL (13.0-16.5) 12/12/24 08:34 12/12/24 Hct 42.0 % (40-54) 12/12/24 08:34 12/12/24 Plt Count 234 K/mm3 (150-450) 12/12/24 08:34 12/12/24 CHEMISTRY Potassium 4.3 mmol/L (3.3-5.1) 12/12/24 08:34 12/12/24 Sodium 138 mmol/L (133-145) 12/12/24 08:34 12/12/24 BUN 9 mg/dL (4-19) 12/12/24 08:34 12/12/24 Creatinine 0.89 mg/dL (0.70-1.20) 12/12/24 08:34 12/12/24 Glucose 193 mg/dL (70-99) H 12/12/24 08:34 12/12/24 TSH 1.46 uIU/mL (0.358-3.74) 12/10/23 07:48 COAG Pre-Assessment Diagnosis/Proposed Procedure Planned Operative Procedure(s): EGD WITH POSS DILATION Anesthesia History 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 When Was Last Pacemaker Check QUESTION #4 FULL TEXT: You/Your Family Experience fever (hyperthermia) with Anesthesia Last Oral Intake Last Oral intake: Last Oral Intake NPO since 00:00 12/25/24 10:00 Meds taken in AM with sips of Yes 12/25/24 10:00 water? Meds patient instructed to omeprazole 12/25/24 10:00 take am of surgery PONV PONV - news producer: PONV - news producer Female No 12/24/24 08:16 HX of Motion Sickness No 12/24/24 08:16 HX of N/V After Surgery No 12/24/24 08:16 Non-Smoker Yes 12/24/24 08:16 Duration of Surgery greater Yes 12/24/24 08:16 than 60 minutes Number of Risk Factors 2 12/24/24 08:16 PONV Score Moderate Risk 12/24/24 08:16 Height & Weight Height & Weight: Anesthesia: Height & Weight Height 5 ft 11 in 12/25/24 10:00 Weight: 88 kg 12/25/24 10:00 Body Mass Index (BMI) 27.0 12/25/24 10:00 Respiratory Assessment Respiratory Assessment - news producer: Respiratory Tract Infection Hx - news producer Hx Respiratory Tract Infection No 12/24/24 08:16 STOP Sleep Apnea STOP Sleep Apnea - news producer: STOP Sleep Apnea - news producer Hx Hypertension No 12/24/24 08:16 Hx Sleep Apnea No 12/24/24 08:16 CPAP BIPAP Do you snore loudly (louder No 12/24/24 08:16 than talking or can be heard Do you often feel tired/ No 12/24/24 08:16 fatigued/ sleepy during daytime? Has anyone observed you stop No 12/24/24 08:16 breathing during sleep? STOP Results Negative 12/24/24 08:16 QUESTION #5 FULL TEXT : Do you snore loudly (louder than talking or can be heard through closed doors)? 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 Specify any problems Hx of Preganancy in last 3 N/A 12/24/24 08:16 Months Nurse Filling Out Transfusion [email or web address] 12/24/24 08:16 & Questions: Date: 12/24/24 12/24/24 08:16 Time: 08:17 12/24/24 08:16 Patient unable to answer at this time (ie. confused, unrespo /Reproduction History /Reproductive History - news producer: /Reproductive Hx- news producer Hx Now Gestational Age (in weeks): EDC: Hx Hx Para Hx Section SAB Active Medications Active Medications: Current Medications Generic Name Dose Route Start Last Admin Trade Name Freq PRN Reason Stop Dose Admin Lactated Ringer's 1,000 mls @ 15 mls/hr 12/25/24 09:45 12/25/24 10:04 IV 15 mls/hr .Q48H JOSELYN Administration PFSH Medical History Alcohol use Diabetes mellitus Wears glasses Rheumatoid arthritis Difficulty swallowing Gastric reflux Former smoker History of edema Dysphagia History of COVID-19 Duodenal ulcer Home Medications ?Medication ?Instructions ?Recorded ?Last Taken ?Type lutein 20 mg capsule 20 mg PO DAILY 04/29/2011/27 History multivitamin,ob-iwtg-tfmtbekv 1 tab PO DAILY 04/29/20 12/24/24 History (Complete Multivitamin tablet) cholecalciferol (vitamin D3) 25 25 mcg PO DAILY 12/24/24 History mcg (1,000 unit) capsule omeprazole 20 mg capsule,delayed 20 mg PO QDAY #90 cap s 10/24/24 12/25/24 Rx release metformin 500 mg tablet 500 mg PO BID #180 tabs 11/2612/24/24 Rx Allergy/AdvReac Type Severity Reaction Status Date / Time No Known Allergies Allergy Verified 12/25/24 10:00 Family History Other Arthritis Diabetes Melanoma blood clot Surgical History History of cataract extraction H/O vasectomy Social History Smoking Status: Former smoker alcohol intake: current alcohol intake frequency: holidays/special occasions only substance use type: does not use what type of physical activity do you participate in: none Review of Systems (Anesthesia) ROS Narrative System reviewed and no additional complaints, except as documented. Physical Exam Const alert and oriented x3 Neck full ROM Resp normal respiratory effort and normal air movement Back/Spine normal ROM Extremity full ROM Skin Rashes: no rashes Neuro oriented x3 and moves all extremities
--- NOTE | 2024-12-25 10:23 | PCM.HP.BLA ---
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: No Is patient in pain?: No Allergies No Known Allergies Allergy (Verified 12/12/24 12:47) Medications ?Medication ?Instructions ?Recorded ?Confirmed ?Type lutein 20 mg capsule 20 mg PO DAILY 04/29/20 12/12/24 History multivitamin,ik-teqs-zpdclnab 1 tab PO DAILY 04/29/20 12/12/24 History (Complete Multivitamin tablet) cholecalciferol (vitamin D3) 25 25 mcg PO DAILY 11/17/21 12/12/24 History mcg (1,000 unit) capsule omeprazole 20 mg capsule,delayed 20 mg PO QDAY #90 caps 10/24/24 12/12/24 Rx release Have you fallen in the past year?: No PFSH Medical History Wears glasses Rheumatoid arthritis Difficulty swallowing Gastric reflux Former smoker History of edema Dysphagia History of COVID-19 Duodenal ulcer Surgical History History of cataract extraction H/O vasectomy Family History Other Arthritis Diabetes Melanoma blood clot Social History Smoking Status: Former smoker alcohol intake: current alcohol intake frequency: holidays/special occasions only substance use type: does not use what type of physical activity do you participate in: none HPI HPI HPI: Patient is a 68-year-old male with history of Doherty's esophagus here for surveillance EGD. His last EGD was 3 years ago. At that time the patient had EGD with biopsies but he did not have dilation. He had an upper GI that showed trapping of barium tablet at that time. The patient reports he is still having some difficulty swallowing if he does not chew well enough. ROS General General: No weight change, appetite, fatigue, colon cancer, breast cancer or weakness HEENT HEENT: No difficulty swallowing, eye injury, eye surgery, swollen glands or hoarseness Endo Endocrine: No thyroid disease, diabetes mellitus, thyroid cancer, Hair loss, heat intolerance or cold intolerance Skin Skin: No rash or changing moles Breast Breast: No left breast lump, right breast lump, nipple discharge, breast pain, abnormal mammogram, abnormal US or breast enlargement Musc Musculoskeletal: Yes arthritis; No back problems, rheumatoid arthritis, gout or joint pain Cardio Cardiovascular: No murmur, pacemaker, heart disease, atrial fibrillation, high blood pressure, heart attack, heart stent, palpitations, shortness of breath with exertion or chest pain Psych Psychiatric: No depression, anxiety or hearing voices Resp Respiratory: No shortness of breath, No sleep apnea, No cough, No COPD, No asthma, No emphysema and No wheezing Gastro Gastrointestinal: No abdominal pain, No nausea or vomiting, No diarrhea, No constipation, No blood in stool, Yes acid reflux, No hemorrhoids, No ulcers, No gallbladder problem and No black,tarry stools Alfred Hematologic: No blood thinners, No blood disorders, No bleeding, No anemia and No blood clots Neuro Neurologic: No system reviewed and no additional complaints, except as documented, No as per HPI, No abnormal gait, No abnormal hearing, No abnormal movements, No abnormal speech, No behavioral changes, No burning sensations, No confusion, No convulsions, No disequilibrium, No dizziness, No localized weakness, No frequent falls, No headache(s), No lack of coordination, No loss of vision, No memory loss, No numbness, No other visual disturbances, No radicular pain, No restless legs, No sensory deficit, No syncope, No tingling, No tremor(s), No weakness and No other Exam Const General: cooperative Orientation: alert and oriented x3 [facility] Head: normal to inspection Neck Neck: normal visual inspection and full ROM Chest Chest palpation & inspection: normal inspection of the chest Resp Effort & Inspection: normal respiratory effort Auscultation: clear to auscultation bilaterally Cardio Rate: regular rate Rhythm: regular rhythm GI Inspection: non-distended Palpation: soft and nontender Skin General: no rashes or lesions noted Neuro General: patient alert and patient oriented x3 Extrem General: full ROM Psych Appearance: grossly normal Mental Status: mental status grossly normal Assessment and Plan Assessment and Plan (1) Schatzki's ring of distal esophagus: Status: Acute Plan: I discussed doing a possible dilation if I see a stenosis of the distal esophagus. I discussed EGD in detail with the patient. I explained endoscopy in detail to the patient. I explained the risks including but not limited to stroke or heart attack with anesthesia, perforation of the GI tract, bleeding, infection. I explained that any of these could necessitate further emergency surgery. The patient understands and all questions were answered sufficiently. The patient wishes to proceed with procedure. I discussed increased risk of bleeding and perforation with dilation and the patient understands. Joshua Villalobos MD Pager: [facility] [address] [place] [address], [address] [place] [address] Office: I have examined the patient and the H&P has been reviewed. There are no clinical changes since date of exam.
--- NOTE | 2024-12-25 10:30 | EGD_PTH ---
PATIENT: NITZA WARE LOC: EN U#:[id number] AGE/SX: 68/M ROOM: RE12/25/[address]: Dr. Joshua Villalobos MD : 1955 BED: DIS: 12/25/2024 SPEC #: [id number] RECD: 12/25/24 12:10 STATUS: MARSHA ZION #: [id number] ZULEIMA: 12/25/24 10:[address]: Joshua Villalobos DEPT: SURGICAL PATHOLOGY RECD BY: Mehran Diaz ENTERED: 12/25/24 14:25 SP TYPE: EGD BIOPSY RADHA DR: Dr. Susie Giron MD Tissues: A - Esophagus, NOS Procedures: Surgery Specimen Level IV HEADER OPERATION: EGD, dilation, biopsy PRE-OP DIAGNOSIS: Amadoutki's ring distal esophagus TISSUE SUBMITTED: A- GE junction biopsy MICROSCOPIC DIAGNOSIS A. Gastro-esophageal junction, biopsy: - Doherty mucosa with reactive epithelial change. - Negative for dysplasia. MICROSCOPIC DESCRIPTION Slides are reviewed. GROSS DESCRIPTION A. Received in fixative is one container labeled with the patient's name and designated GE junction biopsy. The specimen consists of two irregular fragments of light cabello soft tissue that in aggregate measure 0.2 and 0.4 cm. The specimen is totally submitted in one cassette. MIR/ 12/25/2024 CPT:70091
--- NOTE | 2024-12-25 10:47 | OP.EGD_ITS ---
Patient Name: Robbin Hicks Procedure Date: 12/25/2024 10:30 AM Date of : 1955 Age: 68 Procedure: Upper GI endoscopy Indications: Dysphagia, Follow-up of Doherty's esophagus Providers: Joshua Villalobos MD Referring MD: Susie Giron Medicines: Propofol per Anesthesia Patient Profile: This is a 68 year old male. Refer to note in patient chart for documentation of history and physical. Complications: No immediate complications. Estimated blood loss: Minimal. Procedure: Pre-Anesthesia Assessment: - Prior to the procedure, a History and Physical was performed, and patient medications and allergies were reviewed. The patient's tolerance of previous anesthesia was also reviewed. The risks and benefits of the procedure and the sedation options and risks were discussed with the patient. All questions were answered, and informed consent was obtained. Prior Anticoagulants: The patient has taken no anticoagulant or antiplatelet agents. After reviewing the risks and benefits, the patient was deemed in satisfactory condition to undergo the procedure. After obtaining informed consent, the endoscope was passed under direct vision. Throughout the procedure, the patient's blood pressure, pulse, and oxygen saturations were monitored continuously. The gastroscope was introduced through the mouth, and advanced to the third part of duodenum. The upper GI endoscopy was accomplished without difficulty. The patient tolerated the procedure well. Scope In: 10:36:43 AM Scope Out: 10:43:11 AM Total Procedure Duration Time 0 hours 6 minutes 28 seconds Findings: One benign-appearing, intrinsic moderate (circumferential scarring or stenosis; an endoscope may pass) stenosis was found at the gastroesophageal junction. This stenosis measured less than one cm (in length). The stenosis was traversed. A TTS dilator was passed through the scope. Dilation with a 15-16.5-18 mm balloon dilator was performed to 18 mm. The dilation site was examined following endoscope reinsertion and showed mild mucosal disruption. Estimated blood loss was minimal. A medium-sized hiatal hernia was present. The esophagus and gastroesophageal junction were examined with white light from a forward view and retroflexed position. There were esophageal mucosal changes secondary to established short-segment Doherty's disease. These changes involved the mucosa extending to the Z-line. Perry-colored mucosa was present. The maximum longitudinal extent of these esophageal mucosal changes was 4 cm in length. Mucosa was biopsied with a cold forceps for histology in a targeted manner at the gastroesophageal junction. One specimen bottle was sent to pathology. Impression: - Benign-appearing esophageal stenosis. Dilated. - Medium-sized hiatal hernia. - Esophageal mucosal changes secondary to established short-segment Doherty's disease. Biopsied. Recommendation: - Discharge patient to home. - Resume previous diet. - Continue present medications. - Await pathology results. Procedure Code(s): --- Professional --- 50583, Esophagogastroduodenoscopy, flexible, transoral; with transendoscopic balloon dilation of esophagus (less than 30 mm diameter) Diagnosis Code(s): --- Professional --- K22.2, Esophageal obstruction K44.9, Diaphragmatic hernia without obstruction or gangrene K22.70, Doherty's esophagus without dysplasia R13.10, Dysphagia, unspecified CPT copyright 2021 [employer]. All rights reserved. The codes documented in this report are preliminary and upon medical billing coder review may be revised to meet current compliance requirements. Joshua Villalobos MD 12/25/2024 10:47:30 AM This report has been signed electronically. Number of Addenda: 0 Note Initiated On: 12/25/2024 10:30 AM
--- NOTE | 2024-12-25 10:48 | OP.CCLET_ITS ---
12/25/2024 Susie Giron [facility] [address] [place] [address] Re : Upper GI endoscopy procedure for Robbin Hicks Dear Dr. Giron This procedure was performed on Wednesday, December 25, 2024. My impressions and recommendations are as follows: Impressions : - Benign-appearing esophageal stenosis. Dilated. - Medium-sized hiatal hernia. - Esophageal mucosal changes secondary to established short-segment Doherty's disease. Biopsied. Recommendations : - Discharge patient to home. - Resume previous diet. - Continue present medications. - Await pathology results. My findings are described in the full procedure note, which is enclosed. If I can be of further assistance, please feel free to contact me at Doctor phone number(s): , Work: . Sincerely, Joshua Villalobos MD 12/25/2024 10:47:30 AM This report has been signed electronically.
--- NOTE | 2024-12-25 10:53 | PCM.POST.ANE ---
Anesthesia: Postop Eval I Current Vital Signs Temperature: 97.9 F Pulse Rate: 79 Blood Pressure: 117/77 Respiratory Rate: 16 Pulse Ox: 94 Oxygen Delivery Method: Room Air Assessment Airway patent: Yes Spontaneous unlabored respirations: Yes Mental status: Asleep nausea: No Vomiting: No Anesthesia Complication: No Fluid Hydration Crystalloid volume administer (ml): 300 Total IV fluid infused: 300 Progress Note Anesthesia document: Postop Eval 1 completed: Yes
--- NOTE | 2024-12-25 11:26 | PCM.POSTANE2 ---
Anesthesia Postop Eval I Sum Postop Eval Completion status Anesthesia document: Postop Eval 1 completed: Yes Anesthesia Postop Eval I Summary Anesthesia Postop Eval I Summary: Anesthesia Postop Eval I: Assessment Summary Airway patent Yes 12/25/24 10:54 [email or web address] Spontaneous unlabored Yes 12/25/24 10:54 [email or web address] respirations Mental status Asleep 12/25/24 10:54 [email or web address] nausea No 12/25/24 10:54 [email or web address] Vomiting No 12/25/24 10:54 [email or web address] Anesthesia Postop Eval I: Fluid Summary Crystalloid volume administer 300 12/25/24 10:54 [email or web address] (ml) Colloids volume administered ( ml) Blood Product volume administered (ml) Total IV fluid infused 300 12/25/24 10:54 [email or web address] Anesthesia Postop Eval I: Summary Notes Anesthesia Complication No 12/25/24 10:54 [email or web address] Anesthesia Complication Comment: Post-operative progress note Anesthesia: Postop Eval II Evaluation Mental status: Awake and Calm Pain Level: 3 nausea: No Vomiting: No Complications Anesthesia Complication: No
--- OUTSIDE RECORDS SUMMARY | 2024-12-25 19:35 | XMS RPT_ITS | CCD ---
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 Susie Giron Primary Care Provider Dr. Susie Giron Attending Provider Dr. Susie Giron Referring Provider Dr. Charli Broussard Attending Provider Dr. Susie Giron Primary Care Provider Dr. Susie Giron Attending Provider [phone] Dr. Susie Giron Referring Provider Dr. Charli Broussard Other Provider Bree PEREZ, Dr. Richards Primary Care Provider Bree PEREZ, Dr. Richards Attending Provider Bree PEREZ, Dr. Richards Referring Provider Griselda PEREZ, Dr. Lewis Attending Provider Joshua Villalobos Attending Unavailable Susie Giron Referring Unavailable Susie Giron Primary Care Unavailable Susie Giron Attending Unavailable Susie Giron Referring Unavailable Susie Giron Primary Care Unavailable Joshua Villalobos Attending Unavailable Susie Giron Primary Care Unavailable Susie Giron Referring Unavailable Susie Giron Attending Unavailable Susie Giron Primary Care Unavailable Medications Current Medications Medication Drug Class(es) Dates Sig (Normalized) Sig (Original) cholecalciferol 0.025 mg oral capsule (5 sources) Vitamin D Start: 11-17-2021 take 1 capsule by mouth once daily Cholecalciferol (Vitamin D3) 25 mcg (1,000 unit) capsule Active 25 ug PO DAILY November 17, 2021 12:00am lutein 20 mg oral capsule (6 sources) Start: 04-29-2020 take 1 capsule by mouth once daily Lutein 20 mg capsule Active 20 mg PO DAILY April 29, 2020 1:00am give with meal/snack metFORMIN hydrochloride 500 mg oral tablet (1 source) Biguanide Start: 12-14-2024 take 1 tablet by mouth twice daily Metformin 500 mg tablet Active 500 mg PO TWICE A DAY December 14, 2024 12:00am multivitamin,tx-iron- minerals (3 sources) Start: 04-29-2020 take 1 tablet by mouth once daily multivitamin,tx-iron -minerals Active 1 TABLET PO DAILY April 29, 2020 3:27pm Start: 04-29-2020 take 1 tablet by soledad th once daily multivitamin,nv-bcnw-cglaacux Active 1 T ABLET PO DAILY April 29, 2020 1:00am Multivitamin,Af-Sddz-Vynmxfi s (Complete Multivitamin) tablet (3 sources) Start: 04-29-2020 Multivitamin,Ei-Atlc-Zuchjju s (Complete Multivitamin) tablet Active 1 {tbl} PO DAILY April 29, 2020 1:00am omeprazole 20 mg delayed release oral capsule (20 sources) Proton Pump Inhibit or Start: 10-24-2024 take 1 capsule by mouth once daily Omeprazole 20 mg capsule,delayed release(DR/EC) Active 20 mg PO daily October 24, 2024 4:36pm Start: 11-28-2023 End: 11-28-2024 take 1 capsule by mouth every other day Omeprazole 40 mg capsule,delayed release(DR/EC) Discontinued 40 mg PO every other day December 07, 2023 4:33pm November 28, 2024 1:01pm Start: 11-28-2023 End: 10-24-2024 take 1 capsule by mouth every other day Omeprazole 20 mg capsule,delayed release(DR/EC) Discontinued 20 mg PO .qod October 24, 2024 11:20am October 24, 2024 4:36pm Start: 01-29-2022 End: 11-28-2023 take 1 capsule by mouth once daily Omeprazole 40 mg capsule,delayed release(DR/EC) Discontinued 40 mg PO DAILY January 29, 2022 12:00am November 28, 2023 1:13pm Problems Problem Classification Problem Date Documented Da te Episodic/Chronic Abdominal hernia (7 sources) Gastroesophageal reflux disease with hiatal hernia; Translations: [Diaphragmatic hernia without obstruction or gangrene] Onset: 5 02-09-2022 Episodic Diabetes mellitus without complication (1 source) Diabetes mellitus; Translations: [Type 2 diabetes mellitus without complications] 12-14-2024 Chronic Diabetes mellitus without complication (11 sources) High hemoglobin A1c level; Translations: [Other abnormal glucose] Onset: 5 10-27-2021 Episodic Disorders of lipid metabolism (17 sources) Hyperlipidemia; Translations: [Hyperlipidemia, unspecified] Onset: 5 10-27-2021 Chronic Esophageal disorders (14 sources) Lower esophageal ring; Translations: [Esophageal obstruction] Onset: 5 02-09-2022 Chronic Esophageal disorders (3 sources) Esophageal disorders Nutritional deficiencies (1 source) Vitamin D deficiency, unspecified; Translations: [Vitamin D deficiency, unspecified] Onset: 5 Chronic Other gastrointestinal disorders (5 sources) Dysphagia; Translations: [Dysphagia, unspecified] 11-17-2021 Episodic Other gastrointestinal disorders (2 sources) Dysphagia, unspecified; Translations: [Dysphagia, unspecified] Episodic Other screening for suspected conditions (not mental disorders or infectious disease) (8 sources) Patient encounter status; Translations: [Encounter for screening for malignant neoplasm of intestinal tract, unspecified] Onset: 5 Episodic Other skin disorders (3 sources) Skin lesion; Translations: [Disorder of the skin and subcutaneous tissue, unspecified] 11-28-2023 Episodic Other skin disorders (3 sources) Lesion of skin of face; Translations: [Disorder of the skin and subcutaneous tissue, unspecified] 11-28-2023 Episodic Results Test Name Value Interpretation Reference Range Facility Absolute lymphocyte countOrd ered By: Susie Giron on 12-12-2024 Lymphocytes Auto (Unsp spec) [#/Vol] 1.49 10*3/uL 0.83-4.51 [facility] Absolute neutrophil countOrd ered By: Susie Giron on 12-12-2024 Neutrophils (Bld) [#/Vol] 3.0 10*3/uL 2.0-7.7 [facility] Anion gap in Serum or Plasma Ordered By: Susie Giron on 12-12-2024 Anion gap [Moles/Vol] 9 mmol/L 5-15 [facility] Automated lymphocyte count a s percentage of total leukocytesOrdered By: Susie Solorzanochner on 12-12-2024 Lymphocytes/100 WBC Auto (Unsp spec) 26.8 % 19-41 [facility] BUN/creatinine ratioOrdered By: Susiemacie Giron on 12-12-2024 Urea nitrogen/Creatinine [Mass ratio] 10.6 mg/mg 10-20 [facility] Basophil percentageOrdered B y: Susie Giron on 12-12-2024 Basophils/100 WBC (Bld) 0.5 % 0-1 [facility] Bilirubin, totalOrdered By: Susie Giron on 12-12-2024 Bilirubin [Mass/Vol] 0.40 mg/dL 0.00-1.30 [facility] CBC W/Diff, Automatedon 11-25 Absolute Lymph 1.49 X10 3/uL Normal 0.83-4.51 [facility] Comment on above: Performed By: #### L 100.0100, L506.1001, L500.4050, L500.4100, L501.9985, L501.9910 #### [facility] [address] [place], [address] Absolute Neut 3.0 X10 3/uL Normal 2.0-7.7 [facility] Comment on above: Performed By: #### L 100.0100, L506.1001, L500.4050, L500.4100, L501.9985, L501.9910 #### [facility] [address] [place], [address] Basophils/100 WBC (Bld) 0.5 % Normal 0-1 [facility] Comment on above: Performed By: #### L 100.0100, L506.1001, L500.4050, L500.4100, L501.9985, L501.9910 #### [facility] [address] [place], [address] Eosinophils/100 WBC (Bld) 6.8 % High 0-5 [facility] Comment on above: Performed By: #### L 100.0100, L506.1001, L500.4050, L500.4100, L501.9985, L501.9910 #### [facility] [address] [place], [address] Erythrocyte distribution width (RBC) [Ratio] 12.9 % Normal 11.6-14.6 [facility] Comment on above: Performed By: #### L 100.0100, L506.1001, L500.4050, L500.4100, L501.9985, L501.9910 #### [facility] [address] [place], [address] Hematocrit (Bld) [Volume fraction] 42.0 % Normal 40-54 [facility] Comment on above: Performed By: #### L 100.0100, L506.1001, L500.4050, L500.4100, L501.9985, L501.9910 #### [facility] [address] [place], [address] Hemoglobin (Bld) [Mass/Vol] 14.2 g/dL Normal 13.0-16.5 [facility] Comment on above: Performed By: #### L 100.0100, L506.1001, L500.4050, L500.4100, L501.9985, L501.9910 #### [facility] [address] [place], [address] IG% 0.200 Normal 0.0-0.9 [facility] Comment on above: Result Comment: IG% - Immature Granulocytes (promyelocytes, myelocytes and metamyelocytes) > 1% indicates that a LEFT SHIFT is Present. Performed By: #### L 100.0100, L506.1001, L500.4050, L500.4100, L501.9985, L501.9910 #### [facility] [address] [place], [address] Lymphocytes/100 WBC (Bld) 26.8 % Normal 19-41 [facility] Comment on above: Performed By: #### L 100.0100, L506.1001, L500.4050, L500.4100, L501.9985, L501.9910 #### [facility] [address] [place], [address] MCH (RBC) [Entitic mass] 28.4 pg Normal 27.0-32.0 [facility] Comment on above: Performed By: #### L 100.0100, L506.1001, L500.4050, L500.4100, L501.9985, L501.9910 #### [facility] [address] [place], [address] MCHC (RBC) [Mass/Vol] 33.8 g/dL Normal 32-36 [facility] Comment on above: Performed By: #### L 100.0100, L506.1001, L500.4050, L500.4100, L501.9985, L501.9910 #### [facility] [address] [place], [address] MCV (RBC) [Entitic vol] 84.0 fL Normal 80-[address] [facility] Comment on above: Performed By: #### L 100.0100, L506.1001, L500.4050, L500.4100, L501.9985, L501.9910 #### [facility] [address] [place], [address] Monocytes/100 WBC (Bld) 11.0 % High 0-10 [facility] Comment on above: Performed By: #### L 100.0100, L506.1001, L500.4050, L500.4100, L501.9985, L501.9910 #### [facility] [address] [place], [address] Neutrophils/100 WBC (Bld) 54.7 % Normal 47-70 [facility] Comment on above: Performed By: #### L 100.0100, L506.1001, L500.4050, L500.4100, L501.9985, L501.9910 #### [facility] [address] [place], [address] Nucleated RBC (Bld) [#/Vol] 0 10*3/uL Normal 0-5 [facility] Comment on above: Performed By: #### L 100.0100, L506.1001, L500.4050, L500.4100, L501.9985, L501.9910 #### [facility] [address] [place], [address] Platelet mean volume (Bld) [Entitic vol] 10.3 fL Normal 6.2-12.0 [facility] Comment on above: Performed By: #### L 100.0100, L506.1001, L500.4050, L500.4100, L501.9985, L501.9910 #### [facility] [address] [place], [address] Platelets (Bld) [#/Vol] 234 10*3/uL Normal 150-450 [facility] Comment on above: Performed By: #### L 100.0100, L506.1001, L500.4050, L500.4100, L501.9985, L501.9910 #### [facility] [address] [place], [address] RBC (Bld) [#/Vol] 5.00 10*6/uL Normal 4.6-6.2 [facility] Comment on above: Performed By: #### L 100.0100, L506.1001, L500.4050, L500.4100, L501.9985, L501.9910 #### [facility] [address] [place], [address] RDW SD 39.5 fl Normal 35.1-43.9 [facility] Comment on above: Performed By: #### L 100.0100, L506.1001, L500.4050, L500.4100, L501.9985, L501.9910 #### [facility] [address] [place], [address] WBC (Bld) [#/Vol] 5.6 10*3/uL Normal 4.4-11.0 [facility] Comment on above: Performed By: #### L 100.0100, L506.1001, L500.4050, L500.4100, L501.9985, L501.9910 #### [facility] [address] [place], [address] Calculated very low density lipoprotein (VLDL) cholesterol measurementOrdered By: Susie Giron on 12-12-2024 Calculated very low density lipoprotein (VLDL) cholesterol measurement 39 mg/dL 5-40 [facility] Carbon dioxide, total [Moles /volume] in Central venous bloodOrdered By: Susie Giron on 12-12-2024 CO2 [Moles/Vol] 27.3 mmol/L 21.0-32.0 [facility] Chloride assayOrdered By: Cathi Giron on 12-12-2024 Chloride [Moles/Vol] 102 mmol/L 98-108 [facility] Comprehensive Metabolic Prof ilon 12-12-2024 Albumin [Mass/Vol] 3.9 g/dL Normal 3.4-4.8 [facility] Comment on above: Performed By: #### L 100.0100, L506.1001, L500.4050, L500.4100, L501.9985, L501.9910 #### [facility] [address] [place], [address] Albumin/Globulin [Mass ratio] 1.3 {ratio} Normal 0.9-2.4 [facility] Comment on above: Performed By: #### L 100.0100, L506.1001, L500.4050, L500.4100, L501.9985, L501.9910 #### [facility] [address] [place], [address] ALK PHOS 85 U/L Normal 40-129 [facility] Comment on above: Performed By: #### L 100.0100, L506.1001, L500.4050, L500.4100, L501.9985, L501.9910 #### [facility] [address] [place], [address] ALT [Catalytic activity/Vol] 21 U/L Normal <=46 [facility] Comment on above: Performed By: #### L 100.0100, L506.1001, L500.4050, L500.4100, L501.9985, L501.9910 #### [facility] [address] [place], [address] AST [Catalytic activity/Vol] 19 U/L Normal <=37 [facility] Comment on above: Performed By: #### L 100.0100, L506.1001, L500.4050, L500.4100, L501.9985, L501.9910 #### [facility] [address] [place], [address] Bilirubin [Mass/Vol] 0.40 mg/dL Normal 0.00-1.30 [facility] Comment on above: Performed By: #### L 100.0100, L506.1001, L500.4050, L500.4100, L501.9985, L501.9910 #### [facility] [address] [place], [address] BUN/CRE 10.6 RATIO Normal 10-20 [facility] Comment on above: Performed By: #### L 100.0100, L506.1001, L500.4050, L500.4100, L501.9985, L501.9910 #### [facility] [address] [place], [address] Calcium [Mass/Vol] 9.2 mg/dL Normal 7.6-11.0 [facility] Comment on above: Performed By: #### L 100.0100, L506.1001, L500.4050, L500.4100, L501.9985, L501.9910 #### [facility] [address] [place], [address] Chloride [Moles/Vol] 102 mmol/L Normal 98-108 [facility] Comment on above: Performed By: #### L 100.0100, L506.1001, L500.4050, L500.4100, L501.9985, L501.9910 #### [facility] [address] [place], [address] CO2 [Moles/Vol] 27.3 mmol/L Normal 21.0-32.0 [facility] Comment on above: Performed By: #### L 100.0100, L506.1001, L500.4050, L500.4100, L501.9985, L501.9910 #### [facility] [address] [place], [address] Creatinine [Mass/Vol] 0.89 mg/dL Normal 0.70-1.20 [facility] Comment on above: Performed By: #### L 100.0100, L506.1001, L500.4050, L500.4100, L501.9985, L501.9910 #### [facility] [address] [place], [address] GAP 9 Normal 5-15 [facility] Comment on above: Performed By: #### L 100.0100, L506.1001, L500.4050, L500.4100, L501.9985, L501.9910 #### [facility] [address] [place], [address] GFR/1.73 sq M.predicted among non-blacks MDRD (S/P/Bld) [Vol rate/Area] 93 mL/min/{1.73_m2} Normal >60 [facility] Comment on above: Result Comment: mL/m in/1.73m2 CKD-EPI Creatinine Equation (2020) Performed By: #### L 100.0100, L506.1001, L500.4050, L500.4100, L501.9985, L501.9910 #### [facility] [address] [place], [address] Globulin (S) [Mass/Vol] 3.1 g/dL Normal 2.2-4.[address] [facility] Comment on above: Performed By: #### L 100.0100, L506.1001, L500.4050, L500.4100, L501.9985, L501.9910 #### [facility] [address] [place], [address] Glucose [Mass/Vol] 193 mg/dL High 70-99 [facility] Comment on above: Performed By: #### L 100.0100, L506.1001, L500.4050, L500.4100, L501.9985, L501.9910 #### [facility] [address] [place], [address] Potassium [Moles/Vol] 4.3 mmol/L Normal 3.3-5.1 [facility] Comment on above: Performed By: #### L 100.0100, L506.1001, L500.4050, L500.4100, L501.9985, L501.9910 #### [facility] [address] [facility] [place], [address] Sodium [Moles/Vol] 138 mmol/L Normal 133-145 [facility] Comment on above: Performed By: #### L 100.0100, L506.1001, L500.4050, L500.4100, L501.9985, L501.9910 #### [facility] [address] [place], [address] T PROT 7.0 g/dL Normal 5.9-8.4 [facility] Comment on above: Performed By: #### L 100.0100, L506.1001, L500.4050, L500.4100, L501.9985, L501.9910 #### [facility] [address] [place], [address] Urea nitrogen [Mass/Vol] 9 mg/dL Normal 4-19 [facility] Comment on above: Performed By: #### L 100.0100, L506.1001, L500.4050, L500.4100, L501.9985, L501.9910 #### [facility] [address] [place], [address] Eosinophil percentageOrdered By: Susie Giron on 12-12-2024 Eosinophils/100 WBC (Bld) 6.8 % High 0-5 [facility] Erythrocyte distribution wid th ratioOrdered By: Susie Giron on 12-12-2024 Erythrocyte distribution width (RBC) [Ratio] 12.9 % 11.6-14.6 [facility] Erythrocyte distribution wid th standard deviationOrdered By: Susie Giron on 12-12-2024 Erythrocyte distribution width (RBC) [Ratio] 39.5 fl 35.1-43.9 [facility] Glomerular filtration rate ( GFR) estimation/1.73 sq m using serum, plasma, or whole bOrdered By: Susie Giron on 12-12-2024 GFR/1.73 sq M.predicted among non-blacks MDRD (S/P/Bld) [Vol rate/Area] 93 mL/min/{1.73_m2} >60 [facility] Comment on above: mL/min/1.73m2 CKD-EP I Creatinine Equation (2020) Hematocrit Auto (Bld) [Volum e fraction]Ordered By: Susie Giron on 12-12-2024 Hematocrit (Bld) [Volume fraction] 42.0 % 40-54 [facility] Hemoglobin A1con 12-12-2024 HbA1c (Bld) [Mass fraction] 9.4 % High <=5.6 [facility] Comment on above: Result Comment: Norm al < 5.7 % Prediabetic 5.7 - 6.4 % Diabetic >or= 6.5 % Please note range changes. Performed By: #### L 100.0100, L506.1001, L500.4050, L500.4100, L501.9985, L501.9910 #### [facility] [address] [place], [place] [address]all [facility] [place], [address] Hemoglobin A1c percentageOrd ered By: Susie Giron on 12-12-2024 HbA1c (Bld) [Mass fraction] 9.4 % High <5.7 [facility] Comment on above: Normal < 5.7 % Predi abetic 5.7 - 6.4 % Diabetic >or= 6.5 % Please note range changes. Hemoglobin measurementOrdere d By: Susie Giron on 12-12-2024 Hemoglobin (Bld) [Mass/Vol] 14.2 g/dL 13.0-16.5 [facility] Immature granulocytes/100 WB C Auto (Bld)Ordered By: Susie Giron on 12-12-2024 Immature granulocytes/100 WBC (Bld) 0.200 % 0.0-0.9 [facility] Comment on above: IG% - Immature Granu locytes (promyelocytes, myelocytes and metamyelocytes) > 1% indicates that a LEFT SHIFT is Present. LDL calc ser/plasOrdered By: Susie Giron on 12-12-2024 Cholesterol in LDL [Mass/Vol] 160 mg/dL [facility] Comment on above: Jnnghlhdmz=967-427 m g/dL & Higher Texo=621 mg/dL or greater Laboratory - Chemistry and C hemistry - challengeOrdered By: Susie Giron on 12-12-2024 AST [Catalytic activity/Vol] 19 U/L <38 [facility] Lipid Profileon 12-12-2024 CHOL:HDL 5.98 Normal [facility] Comment on above: Performed By: #### L 100.0100, L506.1001, L500.4050, L500.4100, L501.9985, L501.9910 #### [facility] [address] [place], [address] Cholesterol [Mass/Vol] 239 mg/dL High <=200 [facility] Comment on above: Result Comment: Chol esterol level, Desirable <200 mg/dL Borderline high cholesterol 200-239 mg/dL High cholesterol >=240 mg/dL Recommendations of the NCEP Adult Treatment Panel for the following risk-cutoff thresholds for the [place] population. Performed By: #### L 100.0100, L506.1001, L500.4050, L500.4100, L501.9985, L501.9910 #### [facility] [address] [place], [address] Cholesterol in HDL [Mass/Vol] 40 mg/dL Normal [facility] Comment on above: Result Comment: Katie onal Cholesterol Education Program (NCEP) guidelines: <40 mg/dL: Low HDL-cholesterol (major risk factor for CHD) >= 60 mg/dL: High HDL-cholesterol (negative risk factor for CHD) HDL-cholesterol is affected by a number of factors, e.g. smoking, exercise, hormones, sex and age. Performed By: #### L 100.0100, L506.1001, L500.4050, L500.4100, L501.9985, L501.9910 #### [facility] [address] [place], [address] Cholesterol in LDL [Mass/Vol] 160 mg/dL Normal [facility] Comment on above: Result Comment: Bord cecrte=110-672 mg/dL Higher Zbsr=460 mg/dL or greater Performed By: #### L 100.0100, L506.1001, L500.4050, L500.4100, L501.9985, L501.9910 #### [facility] [address] [place], [place], [id number] Cholesterol in VLDL [Mass/Vol] 39 mg/dL Normal 5-40 [facility] Comment on above: Performed By: #### L 100.0100, L506.1001, L500.4050, L500.4100, L501.9985, L501.9910 #### [facility] [address] [place], [place], [id number] Triglyceride [Mass/Vol] 194 mg/dL Normal [facility] Comment on above: Result Comment: The drugs N-Acetylcysteine and Metamizole may falsely depress this assay. Normal range: <150 mg/dL Borderline High: 150-199 mg/dL High: 200-499 mg/dL Very High: >500 mg/dL Performed By: #### L 100.0100, L506.1001, L500.4050, L500.4100, L501.9985, L501.9910 #### [facility] [address] [place], [place], [id number] MCV (mean corpuscular volume ) determinationOrdered By: Susie Giron on 12-12-2024 MCV (RBC) [Entitic vol] 84.0 fL 80-[address] [facility] Mean corpuscular hemoglobin (MCH) determinationOrdered By: Susie Giron on 12-12-2024 MCH (RBC) [Entitic mass] 28.4 pg 27.0-32.0 [facility] Mean corpuscular hemoglobin concentration (MCHC) determinationOrdered By: Susie Giron on 12-12-2024 MCHC (RBC) [Mass/Vol] 33.8 g/dL 32-36 [facility] Mean platelet volume determi nationOrdered By: Susie Giron on 12-12-2024 Platelet mean volume (Bld) [Entitic vol] 10.3 fL 6.2-12.0 [facility] Monocyte percentageOrdered B y: Susie Giron on 12-12-2024 Monocytes/100 WBC (Bld) 11.0 % High 0-10 [facility] Neutrophil percentageOrdered By: Susie Giron on 12-12-2024 Neutrophils/100 WBC (Bld) 54.7 % 47-70 [facility] Nucleated red blood cell per centageOrdered By: Susie Giron on 12-12-2024 Nucleated RBC/100 WBC (Bld) [Ratio] 0 % 0-5 [facility] PSA,Total - Annual Screenon 12-12-2024 PSA,TOT SCREEN 1.34 ng/mL Normal 0.02-4.00 [facility] Comment on above: Result Comment: This test was performed using the [employer] tPSA method. Measured values of a patient??sample can vary depending on the testing procedure used. PSA values determined on patient samples by different testing procedures cannot be used interchangeably. If there is a change in PSA assays while monitoring therapy, sequential testing should be performed to confirm baseline values. Performed By: #### L 100.0100, L506.1001, L500.4050, L500.4100, L501.9985, L501.9910 #### [facility] [address] [place], [address] Platelet countOrdered By: Cathi Giron on 12-12-2024 Platelets (Bld) [#/Vol] 234 10*3/uL 150-450 [facility] Potassium measurement (mass/ volume)Ordered By: Susie Giron on 12-12-2024 Potassium (Unsp spec) [Mass/Vol] 4.3 mmol/L 3.3-5.1 [facility] RBC Auto (Bld) [#/Vol]Ordere d By: Susie Giron on 12-12-2024 RBC (Bld) [#/Vol] 5.00 10*6/uL 4.6-6.2 [facility] Screening total cholesterol/ high density lipoprotein (HDL) cholesterol ratioOrdered By: Susie Giron on 06-18-2025 Cholesterol.total/Choles terol in HDL [Mass ratio] 5.98 {ratio} [facility] Serum creatinine measurement (mass/volume)Ordered By: Susie Giron on 12-12-2024 Creatinine [Mass/Vol] 0.89 mg/dL 0.70-1.20 [facility] Serum globulin measurementOr dered By: Susie Giron on 12-12-2024 Globulin (S) [Mass/Vol] 3.1 g/dL 2.2-4.2 [facility] Serum glucose measurement (m ass/volume)Ordered By: Susie Giron on 12-12-2024 Glucose [Mass/Vol] 193 mg/dL High 70-99 [facility] Serum or plasma alanine dukes otransferase (ALT) measurementOrdered By: Susie Giron on 12-12-2024 ALT [Catalytic activity/Vol] 21 U/L <47 [facility] Serum or plasma albumin paddy urement (mass/volume)Ordered By: Susie Giron on 12-12-2024 Albumin [Mass/Vol] 3.9 g/dL 3.4-4.8 [facility] Serum or plasma albumin/glob ulin mass ratioOrdered By: Susie Giron on 12-12-2024 Albumin/Globulin [Mass ratio] 1.3 {ratio} 0.9-2.4 [facility] Serum or plasma alkaline alexandra sphatase measurementOrdered By: Susie Giron on 12-12-2024 ALP [Catalytic activity/Vol] 85 U/L 40-129 [facility] Serum or plasma calcium paddy urement (mass/volume)Ordered By: Susie Giron on 12-12-2024 Calcium [Mass/Vol] 9.2 mg/dL 7.6-11.0 [facility] Serum or plasma cholesterol in HDL measurement (mass/volume)Ordered By: Susie Giron on 12-12-2024 Cholesterol in HDL [Mass/Vol] 40 mg/dL >40 [facility] Comment on above: National Cholesterol Education Program (NCEP) guidelines:<40 mg/dL: Low HDL-cholesterol (major risk factor for CHD)>= 60 mg/dL: High HDL-cholesterol (negative risk factor for CHD)HDL-cholesterol is affected by a number of factors, e.g. smoking, exercise, hormones, sex and age. Serum or plasma cholesterol measurement (mass/volume)Ordered By: Susie Giron on 12-12-2024 Cholesterol [Mass/Vol] 239 mg/dL High <201 [facility] Comment on above: Cholesterol level, D esirable <200 mg/dLBorderline high cholesterol 200-239 mg/dLHigh cholesterol >=240 mg/dLRecommendations of the NCEP Adult Treatment Panel for the following risk-cutoff thresholds for the [place] population. Serum or plasma urea nitroge n measurement (mass/volume)Ordered By: Susie Giron on 12-12-2024 Urea nitrogen [Mass/Vol] 9 mg/dL 4-19 [facility] Sodium levelOrdered By: Candace Grion on 12-12-2024 Sodium [Moles/Vol] 138 mmol/L 133-145 [facility] Surgery Visit Reporton 12-12 Surgery Visit Report [facility] [address] [place] [address] OFFICE VISIT Date of Service: 12/12/24 MR#: [id number] Acct: [id number] Name: NITZA WARE Rep #: [id number] : 1955 Provider: Dr. Joshua tucker MD Age/Sex: 68/M Location: [facility] Status: Signed Intake Vital Signs 11/28/24 13:02 12/12/24 12:46 Height 5 ft 11 in 5 ft 11 in Weight: 197 lb 2 oz 196 lb BMI 27.5 27.3 BP 148/81 H 134/77 H Blood Pressure Location Lt brachial Rt brachial Position Sitting Sitting Respiration 16 16 Pulse 76 Pulse Source Monitor Temp 98.6 F Temp Source Temporal Pulse Oximetry (%) 97 Oxygen Delivery Method room air Intake Visit Reasons: GERD/HIATAL HERNIA Chief Complaint: egd Crosstie Inspector Required: No Is patient in pain?: No Allergies No Known Allergies Allergy (Verified 12/12/24 12:47) Medications ???Medication ???Instructions ???Recorded ???Confirmed ???Type lutein 20 mg capsule 20 mg PO DAILY 04/29/20 12/12/24 H istory multivitamin,tx-iron-m inerals 1 tab PO DAILY 04/29/20 12/12/24 H istory (Complete Multivitamin tablet) cholecalciferol (vitamin D3) 25 25 mcg PO DAILY 11/17/21 12/12/24 History mcg (1,000 unit) capsule omeprazole 20 mg capsule,delayed 20 mg PO QDAY #90 caps 10/24/24 Rx release Have you fallen in the past year?: No PFSH Medical History Wears glasses Rheumatoid arthritis Difficulty swallowing Gastric reflux Former smoker History of edema Dysphagia History of COVID-19 Duodenal ulcer Surgical History History of cataract extraction H/O vasectomy Family History Other Arthritis Diabetes Melanoma blood clot Social History Smoking Status: Former smoker alcohol intake: current alcohol intake frequency: holidays/special occasions only substance use type: does not use what type of physical activity do you participate in: none HPI HPI HPI: Patient is a 68-year-old male with history of Doherty's esophagus here for surveillance EGD. His last EGD was 3 years ago. At that time the patient had EGD with biopsies but he did not have dilation. He had an upper GI that showed trapping of barium tablet at that time. The patient reports he is still having some difficulty swallowing if he does not chew well enough. ROS General General: No weight change, appetite, fatigue, colon cancer, breast cancer or weakness HEENT HEENT: No difficulty swallowing, eye injury, eye surgery, swollen glands or hoarseness Endo Endocrine: No thyroid disease, diabetes mellitus, thyroid cancer, Hair loss, heat intolerance or cold intolerance Skin Skin: No rash or changing moles Breast Breast: No left breast lump, right breast lump, nipple discharge, breast pain, abnormal mammogram, abnormal US or breast enlargement Musc Musculoskeletal: Yes arthritis; No back problems, rheumatoid arthritis, gout or joint pain Cardio Cardiovascular: No murmur, pacemaker, heart disease, atrial fibrillation, high blood pressure, heart attack, heart stent, palpitations, shortness of breath with exertion or chest pain Psych Psychiatric: No depression, anxiety or hearing voices Resp Respiratory: No shortness of breath, No sleep apnea, No cough, No COPD, No asthma, No emphysema and No wheezing Gastro Gastrointestinal: No abdominal pain, No nausea or vomiting, No diarrhea, No constipation, No blood in stool, Yes acid reflux, No hemorrhoids, No ulcers, No gallbladder problem and No black,tarry stools Alfred Hematologic: No blood thinners, No blood disorders, No bleeding, No anemia and No blood clots Neuro Neurologic: No system reviewed and no additional complaints, except as documented, No as per HPI, No abnormal gait, No abnormal hearing, No abnormal movements, No abnormal speech, No behavioral c hanges, No burning sensations, No confusion, No convulsions, No disequilibrium, No dizziness, No localized weakness, No frequent falls, No headache(s), No lack of coordination, No loss of vision, No memory loss, No numbness, No other visual disturbances, No radicular pain, No restless legs, No sensory deficit, No syncope, No tingling, No tremor(s), No weakness and No other Exam Const General: cooperative Orientation: alert and oriented x3 HENMT Head: normal to inspection Neck Neck: normal visual inspection and full ROM Chest Chest palpation inspection: normal inspection of the chest Resp Effort Inspection: normal respiratory effort Auscultation: clear to auscultation bilaterally Cardio Rate: regular rate Rhythm: regular rhythm GI Inspectio (more content not included)... Normal [facility] Total proteinOrdered By: Suzette Giron on 12-12-2024 Protein [Mass/Vol] 7.0 g/dL 5.9-8.4 [facility] Triglycerides measurementOrd ered By: Susie Giron on 12-12-2024 Triglyceride [Mass/Vol] 194 mg/dL <199 [facility] Comment on above: The drugs N-Acetylcy steine and Metamizole may falsely depress this assay. Normal range: <150 mg/dLBorderline High: 150-199 mg/dLHigh: 200-499 mg/dLVery High: >500 mg/dL Vitamin D,25 Hydroxyon 12-12 Vitamin D 25-OH 24.5 ng/mL Low 30-100 [facility] Comment on above: Result Comment: Gudelia min D Status Deficiency: <20 ng/mL (50nmol/L) Insufficiency: 20-30 ng/mL (50-75 nmol/L) Sufficiency: 30-100 ng/mL (75-250 nmol/L) Toxicity: >100 ng/mL (>250 nmol/L) Performed By: #### L 100.0100, L506.1001, L500.4050, L500.4100, L501.9985, L501.9910 #### [facility] [address] [place], [address] White blood cell (WBC) count Ordered By: Susie Giron on 12-12-2024 WBC (Bld) [#/Vol] 5.6 10*3/uL 4.4-11.0 [facility] MR/BMS.IMBon 11-28-2024 MR/BMS.B [facility] [address] [place] [address] OFFICE VISIT Date of Service: 11/28/24 MR#: [id number] Acct: [id number] Name: NITZA WARE Rep #: [id number] : 1955 Provider: Dr. Susie sequeira MD Age/Sex: 68/M Location: [facility] Status: Signed Intake Vital Signs 11/28/23 13:10 11/28/24 13:02 Height 5 ft 11 in 5 ft 11 in Weight: 197 lb 2 oz BMI 27.5 BP 148/81 H Blood Pressure Location Lt brachial Position Sitting Respiration 16 Pulse 76 Pulse Source Monitor Temp 98.6 F Temp Source Temporal Pulse Oximetry (%) 97 Oxygen Delivery Method room air Intake Visit Reasons: Annual/Physical Chief Complaint: Annual/Physical Crosstie Inspector Required: No Accompanied by: Self Is patient in pain?: No Allergies No Known Allergies Allergy (Verified 11/28/24 12:54) Medications ???Medication ???Instructions ???Recorded ???Confirmed ???Type lutein 20 mg capsule 20 mg PO DAILY 04/29/20 11/28/24 H istory multivitamin,tx-iron-m inerals 1 tab PO DAILY 04/29/20 11/28/24 H istory (Complete Multivitamin tablet) cholecalciferol (vitamin D3) 25 25 mcg PO DAILY 11/17/21 11/28/24 History mcg (1,000 unit) capsule omeprazole 20 mg capsule,delayed 20 mg PO QDAY #90 caps 10/24/24 Rx release Have you fallen in the past year?: No PFSH Medical History Wears glasses Rheumatoid arthritis Difficulty swallowing Gastric reflux Former smoker History of edema Dysphagia History of COVID-19 Duodenal ulcer Surgical History History of cataract extraction H/O vasectomy Family History Other Arthritis Diabetes Melanoma blood clot Social History (Updated 11/28/24 @ 13:02 by Thao Mcclure RN) Smoking Status: Former smoker alcohol intake: current alcohol intake frequency: holidays/special occasions only substance use type: does not use what type of physical activity do you participate in: none HPI HPI Chief Complaint: Annual/Physical Details: NITZA WARE, is a 68 M who presents to the office today for annual follow-up. 68-year-old gentleman who has history of GERD on omeprazole long-term, history of Doherty's esophagus, hiatal hernia. He again takes omeprazole regularly but otherwise no significant long-term medications. He takes vitamin D and a multivitamin as well as lutein supplements. He really does not have any significant new complaints or issues. Review of systems per chart. He feels well. He is not having any chest pain, chest tightness, shortness of breath wheeze cough or congestion. No chest pain, shortness of breath with activity. No fever or chills. No nausea or vomiting. Appetite has been good. He does note that he has long- term nail fungus great toenail right foot. He wonders if is any specific thing to do. He states remotely had oral medication for this and it seemed to clear but returned. He had tried the nail shellac on the market without assistance. Physical exam. Vital signs on chart. PERRLA. Sclera are clear. TMs are unremarkable with normal light reflexes. Canals are unremarkable. Posterior pharynx is unremarkable. Good dentition. No cervical or supraclavicular lymph nodes enlarged or tender. No clear thyromegaly. No thyroid nodules readily palpable. Lungs are without wheeze, rhonchi, rales. No E/A changes are heard. Heart is regular. Not tachycardic. No clear murmur, rub, or gallop is identified. The abdomen is soft. Bowel sounds are present. Nontender nondistended abdomen. No significant leg edema. Cranial nerve examination 2 through 12 are grossly unremarkable nonlateralizing. No obvious rashes. No obvious significant skin lesions are identified. Nail fungus, great toenail right foot. ROS Const Constitutional: No body ache, chills, excessive sweating, fatigue, fever(s), frequent falls, headache(s), snoring, weakness or change in appetite Eyes Eyes: No blurry vision, change in vision, eye pain or Light sensitivity ENT ENT: No abnormal hearing, ear or mastoid pain, tinnitus, nasal congestion, headache(s), neck pain or sore throat Resp Respiratory: No cough, shortness of breath, snoring or wheezing Cardio Cardiology: No chest pain at rest, chest pain with exertion, excessive sweating, dyspnea on exertion, lightheadedness, orthopnea or palpitations Gastro GI: No abdominal pain, change in bowel habits, constipation, cramping, diarrhea, nausea/dyspepsia or vomiting Genitourinary Male: No burning urination, painful urination, urinary incontinence or urinary frequency Musc Musculoskeletal: No abnormal gait, joint pain, back pain, limited range of motion, muscle weakness, ne (more content not included)... Normal [facility] Absolute lymphocyte counton 10-29-2021 Lymphocytes Auto (Unsp spec) [#/Vol] 1.74 10*3/uL 0.83-4.51 [facility] Work Phone: Basophil percentageon 2021 Basophils/100 WBC (Bld) 0.3 % 0-1 [facility] Work Phone: Bilirubin [Mass/Vol] 0.50 mg/dL 0.20-1.00 [facility] Work Phone: Comment on above: For patients on eltr ombopag therapy, use of Dimension [place] TBIL is not recommended. Chloride [Moles/Vol] 103 mmol/L 98-107 [facility] Work [facility]: Cholesterol [Mass/Vol] 195 mg/dL <200 [facility] Work Phone: Comment on above: <200 mg/dL Desirable 200-240 mg/dL Borderline >240 mg/dL High Risk Eosinophils/100 WBC (Bld) 2.7 % 0-5 [facility] Work Phone: Glucose [Mass/Vol] 83 mg/dL 74-106 [facility] Work Phone: Neutrophils (Bld) [#/Vol] 3.7 10*3/uL 2.0-7.7 [facility] Work Phone: Neutrophils/100 WBC (Bld) 60.4 % 47-70 [facility] Work Phone: Potassium [Moles/Vol] 4.0 mmol/L 3.5-5.1 [facility] Work [facility]: Protein [Mass/Vol] 7.4 g/dL 6.4-8.2 [facility] Work Phone: Sodium [Moles/Vol] 139 mmol/L 136-145 [facility] Work Phone: Triglyceride [Mass/Vol] 96 mg/dL <199 [facility] Work Phone: Comment on above: The drugs N-Acetylcy steine and Metamizole may falsely depress this assay.Serum Triglycerides Reference Interval Normal <150 mg/dL Borderline high 150 - 199 mg/dL High 200 - 499 mg/dL Very High > or = 500 mg/dL WBC (Bld) [#/Vol] 6.2 10*3/uL 4.4-11.0 [facility] Work Phone: Blood erythrocytes count (nu mber/volume)on 10-29-2021 RBC (Bld) [#/Vol] 5.07 10*6/uL 4.6-6.2 [facility]: Blood hemoglobin measurement (mass/volume)on 10-29-2021 Hemoglobin (Bld) [Mass/Vol] 14.1 g/dL 13.0-16.5 [facility] Work Phone: Blood lymphocytes/100 leukoc yteson 10-29-2021 Lymphocytes/100 WBC (Bld) 28.1 % 19-41 [facility] Work Phone: [phone] Blood monocytes/100 leukocyt eson 10-29-2021 Monocytes/100 WBC (Bld) 8.2 % 0-10 [facility] Work Phone: [phone] Blood platelet mean volumeon 10-29-2021 Platelet mean volume (Bld) [Entitic vol] 10.5 fL 6.2-12.0 [facility] Work Phone: [phone] Determination of erythrocyte mean corpuscular volume (MCV)on 10-29-2021 MCV (RBC) [Entitic vol] 85.8 fL 80-94 [facility] Work Phone: [phone] Hematocrit Auto (Bld) [Volum e fraction]on 10-29-2021 Hematocrit (Bld) [Volume fraction] 43.5 % 40-54 [facility] Work Phone: Laboratory - Chemistry and C hemistry - challengeon 10-29-2021 ALP [Catalytic activity/Vol] 64 U/L 45-117 [facility] Work Phone: [phone] ALT [Catalytic activity/Vol] 23 U/L 16-61 [facility] Work Phone: [phone] CO2 [Moles/Vol] 30.0 mmol/L 21.0-32.0 [facility] Work Phone: [phone] Free T4 [Mass/Vol] 1.00 ng/dL 0.76-1.46 [facility] Work Phone: [phone] Globulin (S) [Mass/Vol] 4.1 g/dL 2.2-4.2 [facility] Work Phone: [phone] Urea nitrogen/Creatinine [Mass ratio] 10.7 mg/mg 10-20 [facility] Work Phone: [phone] Laboratory - Hematology and Cell countson 10-29-2021 Erythrocyte distribution width (RBC) [Entitic vol] 39.9 fL 35.1-43.9 [facility] Work Phone: [phone] Erythrocyte distribution width (RBC) [Ratio] 12.9 % 11.6-14.6 [facility] Work Phone: [phone] Immature granulocytes/100 WBC (Bld) 0.300 % 0.0-0.9 [facility] Work Phone: [phone] Comment on above: IG% - Immature Granu locytes (promyelocytes, myelocytes and metamyelocytes) > 1% indicates that a LEFT SHIFT is Present. MCH (RBC) [Entitic mass] 27.8 pg 27.0-32.0 [facility] Work Phone: [phone] Nucleated RBC/100 WBC (Bld) [Ratio] 0 % 0-5 [facility] Work Phone: [phone] MCHC Auto (RBC) [Mass/Vol]on 10-29-2021 MCHC (RBC) [Mass/Vol] 32.4 g/dL 32-36 [facility] Work Phone: [phone] No Panel Informationon 10-29 Estimated GFR (MDRD) Amer 103 mL/min >60 [facility] Work Phone: [phone] Comment on above: GFR Calc Estimated GFR (MDRD) Non-Af Amer 85 mL/min >60 [facility] Work Phone: [phone] Comment on above: Non- GFR Calc Free Triiodothyronine (T3) pg/dL 2.9 pg/mL 2.18-3.98 [facility] Work Phone: [phone] Prostate Specific Antigen Screen 2.05 ng/mL 0.00-4.00 [facility] Work Phone: [phone] Comment on above: This test was perfor med using the TPSA assay method for the[facility]. Values obtained with differentassay methods cannot be used interchangably.When changing PSA assays in the course of monitoring apatient, additional sequential testing should be carriedout to confirm baseline values. Thyroid Stimulating Hormone (TSH) 0.85 uIU/mL 0.358-3.74 [facility] Work Phone: [phone] Vitamin D 25-Hydroxy 23.5 ng/mL [facility] Work Phone: [phone] Comment on above: Vitamin D 25(OH) Sta tus Range Deficiency <20 ng/mL (50nmol/L) Insufficiency 20 - 30 ng/mL (50 - 75 nmol/L) Sufficiency 30 - 100 ng/mL (75 - 250 nmol/L) Toxicity >100 ng/mL (>250 nmol/L) Platelets bldon 10-29-2021 Platelets (Bld) [#/Vol] 233 10*3/uL 150-450 [facility] Work Phone: [phone] Serum or plasma albumin paddy urement (mass/volume)on 10-29-2021 Albumin [Mass/Vol] 3.3 g/dL 3.2-5.0 [facility] Work Phone: [phone] Serum or plasma albumin/glob ulin mass ratioon 10-29-2021 Albumin/Globulin [Mass ratio] 0.8 {ratio} 0.9-2.4 [facility] Work Phone: [phone] Serum or plasma calcium paddy urement (mass/volume)on 10-29-2021 Calcium [Mass/Vol] 8.7 mg/dL 8.5-10.1 [facility] Work Phone: [phone] Serum or plasma cholesterol in HDL measurement (mass/volume)on 10-29-2021 Cholesterol in HDL [Mass/Vol] 45 mg/dL >40 [facility] Work Phone: Comment on above: The drugs N-Acetylcy steine and Metamizole may falsely depress this assay. Reference Range HDL <40 mg/dL Low HDL Cholesterol HDL >or= 60 mg/dL High HDL Cholesterol Serum or plasma cholesterol in VLDL measurement (mass/volume)on 10-29-2021 Cholesterol in VLDL [Mass/Vol] 19 mg/dL 5-40 [facility] Work Phone: Serum or plasma creatinine m easurement (mass/volume)on 10-29-2021 Creatinine [Mass/Vol] 0.94 mg/dL 0.70-1.30 [facility] Work Phone: Comment on above: The validity of the calculated GFR & GFRAA in patients over 70 years has not been determined. Clinical correlation is essential. Serum or plasma low density lipoprotein (LDL) cholesterol measurement (mass/volume)on 10-29-2021 Cholesterol in LDL [Mass/Vol] 131 mg/dL 0-130 [facility] Work Phone: Serum or plasma urea nitroge n measurement (mass/volume)on 10-29-2021 Urea nitrogen [Mass/Vol] 10 mg/dL 7-18 [facility] Work Phone: Thin prep Papanicolaou smear with manual screeningon 10-29-2021 Thin prep Papanicolaou smear with manual screening 14 U/L 15-37 [facility] Work Phone: Thin prep Papanicolaou smear with manual screening 6 5-15 [facility] Work Phone: Whole blood hemoglobin A1c/t otal hemoglobin ratio (mass fraction)on 10-29-2021 HbA1c (Bld) [Mass fraction] 6.2 % 3.8-5.6 [facility] Work Phone: Comment on above: Normal < 5.7 % Predi abetic 5.7 - 6.4 % Diabetic >or= 6.5 % Please note range changes. CNOVon 06-10-2018 CNOV Office Visit (UCWSTR) NITZA WARE ([id number]) 1955 [facility] Xvrndrwquz85/15/18 9:45 AM AQUILES RINALDI [facility] During your visit today, we recorded the following information about you: Temperature Pulse Respiration Blood pressure 98 degrees 71/minute 18/minute 160/90 Weight 79.8 kgAquiles Rinaldi MD 06/10/2018 10:22 AM SignedPatient presents with:Edema: Left handHPI:Left hand pain: Duration: Painful overnight, improved currently. Has had a few twinges inright shoulder this week and back of the left hand yesterday. Location: Left middle finger through the palm to the ventral wrist Character: Sharp with use, numb at rest Radiation: Finger to wrist, some into arm last night Aggravating: Moving the hand, not bothered by neck movement Relieving: Pain relievers: aleve Associated: Swelling in fingers, hurts to make a fist Pertinent negatives: Denies injury, chest pain, shortness of breath,palpitations, dizziness, Hx of goutPAST MEDICAL HISTORYDiagnosis Date- PMH - PAST MEDICAL HISTORY OF stomach ulcersMEDICATIONS:No prescriptions on file.ALLERGIES:ALLERGI ESNo Known AllergiesVITALS:BP 160/100 Pulse 71 Temp 36.7 ?C (98 ?F) (Left Tympanic) Resp 18 Wt79.8 kg (176 lb) SpO2 99% BMI 24.20 kg/m?Repeat 160/90PHYSICAL EXAM:left hand dominant. GEN: pleasant, no acute distress, alert HEENT: PERRL, EOMI, MMM NECK: supple, FROM without pain, no lymphadenopathy, no thyromegaly HEART: regular rate, regular rhythm, no murmurs LUNGS: clear to auscultation, no wheezes or crackles, no increased WOB EXT: no clubbing, no cyanosis, mild edema of the left hand and fingerscompared to the right. Painful incomplete fist due to swelling. Weak leftgrip, normal pincer grasp. Cap refill <2 sec with Chin test. PSYCH: Somewhat anxious, pacing in the waiting room, normal rate of speechand content. Normal sensation on fingers, hand, and wrist with monofilament.ASSESSMEN T/PLAN:1. Swelling of left hand - ICD9: 729.81, ICD10: M79.89 (primary diagnosis)2. Pain in left hand - ICD9: 729.5, ICD10: M79.642Left hand tenosynovitis. He admits to bending metal bars yesterday. Treatwith rest, ice, and aleve tid.F/u with fever, worsening pain, spreading swelling, increasing weakness, orcardiopulmonary symptoms.3. Elevated blood pressure reading without diagnosis of hypertension - ICD9:796.2, ICD10: R03.0Recommended PCP f/u. He has not been to a medical professional for severalyears due to family members that he believes were harmed by doctors. He agreesto check his insurance for accepted physicians.Aquiles Rinaldi, MDReferring Provider: SELF [[id number]]Allergies As of Date: 06/10/2018(No Known Allergies)Date Reviewed: 06/10/2018Reviewed by: Jamia Hightower Ma - Fully AssessedReason for Visit: Edema [39] Cmt: Left handPrimary Visit Diagnosis:Swelling of left hand [M79.89] Other Visit Diagnoses:Pain in left hand [M79.642] Elevated blood pressure reading without diagnosis of hypertension [R03.0]Problem List As Of Date 06/10/2018 Noted Resolved SCREENING MAL NEOP-PROSTATE [Z12.5] INVALID FOR* SCREENING MAL NEOP-COLON [Z12.11] INVALID FOR* TOBACCO USE DISORDER [F17.200] INVALID FOR* More... PEPTIC ULCER NOS [K27.9] INVALID FOR* More... FAMILY HX DIABETES MELLITUS [Z83.3] INVALID FOR* IMPAIRED FASTING GLUCOSE [R73.01] INVALID FOR* More...Medications Discontinued During This Encounter varenicline tartrate(CHANTIX CONTINU* 60 1 09/27/2008 06/10/2018 Class: Print RX Route: ORAL Sig: one twice daily Disc: Course of therapy completed varenicline tartrate(CHANTIX 0.5 MG * 1dos* 0 09/27/2008 06/10/2018 Class: Print RX Route: ORAL Sig: use per instructions Disc: Course of therapy completedEncounter Number: [id number] Status:Closed by AQUILES RINALDI MD on 06/10/18 Normal [facility] PROGRESSon 06-10-2018 Protein mass conc HNO ID: [id number]: Aquiles Thomsonervice: (none)Author Type: PhysicianType: Progress NotesFiled: 06/10/2018 10:22 AMNote Text:Patient presents with:Edema: Left handHPI:Left hand pain: Duration: Painful overnight, improved currently. Has had a fewtwinges in right shoulder this week and back of the left hand yesterday. Location: Left middle finger through the palm to the ventral wrist Character: Sharp with use, numb at rest Radiation: Finger to wrist, some into arm last night Aggravating: Moving the hand, not bothered by neck movement Relieving: Pain relievers: aleve Associated: Swelling in fingers, hurts to make a fist Pertinent negatives: Denies injury, chest pain, shortness of breath,palpitations, dizziness, Hx of goutPAST MEDICAL HISTORYDiagnosis Date- PMH - PAST MEDICAL HISTORY OF stomach ulcersMEDICATIONS:No prescriptions on file.ALLERGIES:ALLERGI ESNo Known AllergiesVITALS:BP 160/100 Pulse 71 Temp 36.7 ?C (98 ?F) (Left Tympanic) Resp 18 Wt 79.8 kg (176 lb) SpO2 99% BMI 24.20 kg/m?Repeat 160/90PHYSICAL EXAM:left hand dominant. GEN: pleasant, no acute distress, alert HEENT: PERRL, EOMI, MMM NECK: supple, FROM without pain, no lymphadenopathy, no thyromegaly HEART: regular rate, regular rhythm, no murmurs LUNGS: clear to auscultation, no wheezes or crackles, no increased WOB EXT: no clubbing, no cyanosis, mild edema of the left hand and fingerscompared to the right. Painful incomplete fist due to swelling. 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 Cap refill <2 sec with Chin test. PSYCH: Somewhat anxious, pacing in the waiting room, normal rate ofspeech and content. Normal sensation on fingers, hand, and wrist withmonofilament.ASSES SMENT/PLAN:1. Swelling of left hand - ICD9: 729.81, ICD10: M79.89 (primary diagnosis)2. Pain in left hand - ICD9: 729.5, ICD10: M79.642Left hand tenosynovitis. He admits to bending metal bars yesterday.Treat with rest, ice, and aleve tid.F/u with fever, worsening pain, spreading swelling, increasing weakness,or cardiopulmonary symptoms.3. Elevated blood pressure reading without diagnosis of hypertension -ICD9: 796.2, ICD10: R03.0Recommended PCP f/u. He has not been to a medical professional forseveral years due to family members that he believes were harmed bydoctors. He agrees to check his insurance for accepted physicians.Aquiles Rinaldi MD [facility] Vital Signs Date Time Vital Sign Value Performing Clinician Marilynn benson 12-12-2024 12:46-0400 Body height 180.[address] Susie Giron MD Work Phone: [facility] 12-12-2024 12:46-0400 Body mass index (BMI) [Ratio] 27.3 kg/m2 Dr. Susie Giron MD Work Phone: [facility] 12-12-2024 12:46-0400 Body weight 88.[address] Susie Giron MD Work Phone: [facility] 12-12-2024 12:46-0400 Diastolic blood pressure 77 mm[Hg] Dr. Susie Giron MD Work Phone: [facility] 12-12-2024 12:46-0400 Respiratory rate 16 /min Dr. Susie Giron MD Work Phone: [facility] 12-12-2024 12:46-0400 Systolic blood pressure 134 mm[Hg] Dr. Susie Giron MD Work Phone: [facility] 11-28-2024 13:02-0400 Body height 180.[address] Susie Giron MD Work Phone: [facility] 11-28-2024 13:02-0400 Body mass index (BMI) [Ratio] 27.5 kg/m2 Dr. Susie Giron MD Work Phone: [facility] 11-28-2024 13:02-0400 Body temperature 98.6 [degF] Dr. Susie Giron MD Work Phone: [facility] 11-28-2024 13:02-0400 Body weight 89.[address] Susie Giron MD Work Phone: [facility] 11-28-2024 13:02-0400 Diastolic blood pressure 81 mm[Hg] Dr. Susie Giron MD Work Phone: [facility] 11-28-2024 13:02-0400 Heart rate 76 /min Dr. Susie Giron MD Work Phone: [facility] 11-28-2024 13:02-0400 Respiratory rate 16 /min Dr. Susie Giron MD Work Phone: [facility] 11-28-2024 13:02-0400 SaO2% (BldA) [Mass fraction] 97 % Dr. Susie Giron MD Work Phone: [facility] 11-28-2024 13:02-0400 Systolic blood pressure 148 mm[Hg] Dr. Susie Giron MD Work Phone: [facility] 01-29-2022 08:13-0400 Body temperature 98.5 [degF] Dr. Susie Giron Work Phone: [facility] Work Phone: 01-29-2022 08:13-0400 Diastolic blood pressure 71 mm[Hg] Dr. Susie Giron Work Phone: [facility] Work Phone: 01-29-2022 08:13-0400 Heart rate 74 /min Dr. Susie Giron Work Phone: [facility] Work Phone: 01-29-2022 08:13-0400 Respiratory rate 16 /min Dr. Susie Giron Work Phone: [facility] Work Phone: 01-29-2022 08:13-0400 SaO2% (BldA) [Mass fraction] 94 % Dr. Susie Giron Work Phone: [facility] Work Phone: 01-29-2022 08:13-0400 Systolic blood pressure 114 mm[Hg] Dr. Susie Giron Work Phone: [facility] Work Phone: 01-29-2022 06:22-0400 Body height 180.[address] Susie Giron Work Phone: [facility] Work Phone: 01-29-2022 06:22-0400 Body mass index (BMI) [Ratio] 25 kg/m2 Dr. Susie Giron Work Phone: [facility] Work Phone: 01-29-2022 06:22-0400 Body weight 81.[address] Susie Giron Work Phone: [facility] Work Phone: 11-17-2021 13:20-0400 Body mass index (BMI) [Ratio] 25.5 kg/m2 Dr. Susie Giron Work Phone: [facility] Work Phone: 11-17-2021 13:20-0400 Body weight [address] Susie Giron Work Phone: [facility] Work Phone: 11-17-2021 13:20-0400 Diastolic blood pressure 70 mm[Hg] Dr. Susie Giron Work Phone: [facility] Work Phone: 11-17-2021 13:20-0400 Respiratory rate 18 /min Dr. Susie Giron Work Phone: [facility] Work Phone: 11-17-2021 13:20-0400 Systolic blood pressure 128 mm[Hg] Dr. Susie iGron Work Phone: [facility] Work Phone: 11-17-2021 13:20-0400 Body height 180.[address] Susie Giron Work Phone: [facility] Work Phone: 11-17-2021 13:20-0400 Body mass index (BMI) [Ratio] 25.5 kg/m2 Dr. Susie Giron Work Phone: [facility] Work Phone: 11-17-2021 13:20-0400 Body weight [address] Susie Giron Work Phone: [facility] Work Phone: 11-17-2021 13:20-0400 Diastolic blood pressure 70 mm[Hg] Dr. Susie Giron Work Phone: [facility] Work Phone: 11-17-2021 13:20-0400 Respiratory rate 18 /min Dr. Susie Giron Work Phone: [facility] Work Phone: 11-17-2021 13:20-0400 Systolic blood pressure 128 mm[Hg] Dr. Susie Giron Work Phone: [facility] Work Phone: 10-27-2021 16:10-0400 Body mass index (BMI) [Ratio] 25.5 kg/m2 Dr. Susie Giron Work Phone: [facility] Work Phone: 10-27-2021 16:10-0400 Body temperature 98.9 [degF] Dr. Susie Giron Work Phone: [facility] Work Phone: 10-27-2021 16:10-0400 Body weight [address] Susie Giron Work Phone: [facility] Work Phone: 10-27-2021 16:10-0400 Diastolic blood pressure 66 mm[Hg] Dr. Susie Giron Work Phone: [facility] Work Phone: 10-27-2021 16:10-0400 Heart rate 74 /min Dr. Susie Giron Work Phone: [facility] Work Phone: 10-27-2021 16:10-0400 Respiratory rate 14 /min Dr. Susie Giron Work Phone: [facility] Work Phone: 10-27-2021 16:10-0400 SaO2% (BldA) [Mass fraction] 98 % Dr. Susie Giron Work Phone: [facility] Work Phone: 10-27-2021 16:10-0400 Systolic blood pressure 118 mm[Hg] Dr. Susie Giron Work Phone: [facility] Work Phone: 10-27-2021 16:10-0400 Body height 180.[address] Susie Giron Work Phone: [facility] Work Phone: 10-27-2021 16:10-0400 Body mass index (BMI) [Ratio] 25.5 kg/m2 Dr. Susie Giron Work Phone: [facility] Work Phone: 10-27-2021 16:10-0400 Body temperature 98.9 [degF] Dr. Susie Giron Work Phone: [facility] Work Phone: 10-27-2021 16:10-0400 Body weight [address] Susie Giron Work Phone: [facility] Work Phone: 10-27-2021 16:10-0400 Diastolic blood pressure 66 mm[Hg] Dr. Susie Giron Work Phone: [facility] Work Phone: 10-27-2021 16:10-0400 Heart rate 74 /min Dr. Susie Giron Work Phone: [facility] Work Phone: 10-27-2021 16:10-0400 Respiratory rate 14 /min Dr. Susie Giron Work Phone: [facility] Work Phone: 10-27-2021 16:10-0400 SaO2% (BldA) [Mass fraction] 98 % Dr. Susie Giron Work Phone: [facility] Work Phone: 10-27-2021 16:10-0400 Systolic blood pressure 118 mm[Hg] Dr. Susie Giron Work Phone: [facility] Work Phone: Encounters Encounter Date Encounter Type Care Provider Facility Start: 12-25-2024 ambulatory Joshua Subramanian [facility] Start: 12-12-2024 End: 12-12-[address] Joshua Villalobos MD -[facility] Work Phone: Start: 12-12-2024 End: 12-12-[address] Susie Giron MD Work Phone: [facility] Work Phone: Start: 12-12-2024 End: 12-12-[address] Susie Giron MD Work Phone: [facility] Work Phone: Start: 12-12-2024 End: 12-12-[address] Susie Giron MD -Laboratory Work Phone: Start: 12-12-2024 End: 12-12-2024 ambulatory Susie Giron Facility:[facility] Start: 11-28-2024 End: 11-28-[address] Susie Giron MD -[facility] Work Phone: Start: 11-28-2024 End: 11-28-[address] Susie Giron MD Work Phone: [facility] Work Phone: Start: 01-29-2022 Non-patient / Non-visit Dr. Susie Giron Work Phone: [facility] Start: 01-29-2022 End: 01-29-2022 Admission to same day surgery center Dr. Susie Giron Work Phone: [facility]-Endoscopy Start: 12-01-2021 End: 12-01-[address] Susie Giron Work Phone: [facility]-Radiology, [facility] Start: 11-17-2021 End: 11-17-[address] Susie Giron Work Phone: [facility] Start: 10-29-2021 End: 10-29-[address] Susie Giron Work Phone: [facility]-Laboratory, [place] Start: 10-27-2021 End: 10-27-[address] Susie Giron Work Phone: [facility] Start: 06-10-2018 End: 06-12-2018 Patient encounter procedure [facility] Procedures Date Procedure Procedure Detail Performing Clinician Start: 12-12-2024 Prostate specific an tigen measurement Dr. Susie Giron MD Work Phone: Comment on above: This test was perfor med using the [employer] tPSA method. Measured values of a patient sample can vary depending on the testing procedure used. PSA values determined on patient samples by different testing procedures cannot be used interchangeably. If there is a change in PSA assays while monitoring therapy, sequential testing should be performed to confirm baseline values. Start: 12-12-2024 Vitamin D, 25-hydrox y measurement Dr. Susie Giron MD Work Phone: Comment on above: Vitamin D StatusDefi ciency: <20 ng/mL (50nmol/L)Insufficiency: 20-30 ng/mL (50-75 nmol/L)Sufficiency: 30-100 ng/mL (75-250 nmol/L)Toxicity: >100 ng/mL (>250 nmol/L) Start: 01-29-[address] Susie Giron Work Phone: Start: 12-01-[address] Candace Giron Work Phone: Plan of Treatment Date Care Activity Detail Author Start: 11-28-2024 Patient referral [facility] Work Phone: Start: 01-29-2022 Patient discharge [facility] Work Phone: Start: 10-27-2021 Patient referral [facility] Work Phone: CBC W Auto Different ial panel - Blood [facility] Comprehensive metabo lic 1999 panel - Serum or Plasma [facility] Hemoglobin A1c/Hemog lobin.total in Blood [facility] Lipid 1996 panel - S dandre or Plasma [facility] Patient referral [facility] Work Phone: Prostate specific an tigen measurement [facility] Vitamin D, 25-hydrox y measurement [facility] Immunizations Immunization Date Immunization Notes Care Provider Fa ciliolvin 04-28-2021 pneumococcal polysaccharide vaccine, [address] Susie Giron Work Phone: [facility] 04-28-2021 pneumococcal vaccine , unspecified formulation Dr. Susie Giron Work Phone: [facility] Work Phone: 11-01-2020 Covid (Pfizer) Dr. Susie pena Work Phone: [facility] 10-10-2020 Covid (Pfizer) Dr. Susie pena Work Phone: [facility] 09-05-[address] Susie Giron Work Phone: [facility] 06-26-[address] Susie Giron Work Phone: [facility] 04-29-2020 pneumococcal vaccine , unspecified formulation Dr. Susie Giron Work Phone: [facility] Work Phone: 04-29-2020 pneumococcal conjuga te vaccine, [address] Susie Giron Work Phone: [facility] 04-29-2020 pneumococcal vaccine , unspecified formulation Dr. Susie Giron Work Phone: [facility] Payers Date Payer Category Payer Self-pay [id number] 2024 Private Health Insurance [id number] Medicare MEDICARE PART A B [id number] Unknown [facility] JERSON [id number] Unknown [id number] Unknown [id number] Unknown [id number] Unknown [id number] Social History Date Type Detail Facility Start: 10-27-2021 End: 01-25-2022 Tobacco smoking status NHIS Unknown if ever smoked [facility] Work Phone: Start: 1955 Sex Assigned At Male [facility] Start: 11-28-2024 Tobacco smoking stat us NHIS Ex-smoker (finding) [facility] Goals Date Patient Goal Desired Activity /State Mental Status Date Assessment Result Facility 01-29-2022 Cognitive function Voice/Name [facility] Work Phone: Evaluation note 11-28-2024 Note Date & Type Note Facility 11-28-2024 Evaluation note Diagnosis Onset Date Resolution Barretts esophagus acute November 282024 12:58pm Elevated hemoglobin A1c acute J une 2024 12:58pm Hiatal hernia with gastroesophageal reflux acute November 12:58pm Hyperlipidemia acute November 28, 2024 12:58pm [facility] Work Phone: Evaluation note 11-28-2024 Note Date & Type Note Facility 11-28-2024 Evaluation note Diagnosis Onset Date Resolution Barretts esophagus acute November 282024 12:58pm Elevated hemoglobin A1c [facility] 20[facility] 12:58pm Hiatal hernia with gastroesophageal reflux acute November 12:58pm Hyperlipidemia acute November 28, 2024 12:58pm Barretts esophagus acute November 252024 12:12pm Schatzki's ring of distal esophagus acute December 12, 2024 12:12pm [facility] Work Phone: Evaluation note Note Date & Type Note Facility Evaluation note No assessment information availa [facility] Work Phone: Evaluation note Note Date & Type Note Facility Evaluation note Diagnosis Onset Date Dysphagia acute Screening for intestinal cancer acute [facility] Work Phone: Evaluation note Note Date & Type Note Facility Evaluation note Diagnosis Onset Date Resolution Barretts esophagus acute November 282024 12:58pm Elevated hemoglobin A1c [facility] 2024 12:58pm Hiatal hernia with gastroesophageal reflux acute November 12:58pm Hyperlipidemia acute November 28, 2024 12:58pm [facility] Work Phone: Hospital Discharge instructions Note Date & Type Note Facility Hospital Discharge instructions [facility] Work Phone: Hospital Discharge instructions Note Date & Type Note Facility Hospital Discharge instructions [facility] Work Phone: Hospital Discharge instructions Note Date & Type Note Facility Hospital Discharge instructions [facility] Work Phone: Hospital Discharge instructions Note Date & Type Note Facility Hospital Discharge instructions Ambulatory OrdersGeneral Surgery Location: None Selected [facility] Work Phone: Summary Purpose Family History No Family History Records Found Relationship Condition Age at Onset Recorded Date/T ino Not Specified Diabetes mellitus Unknown Arthritis Unknown Malignant melanoma Unknown Unknown Advance Directives No Advanced Directives Records Found Advance Directive Response Recorded Date/ Time Living Will No January 25, 2022 1:57pm Power of Director Of Pupil Personnel Program No January 25 1:57pm Chief Complaint and Reason for Visit Chief Complaint CHECK UP, FOOT PAIN Chief Complaint CHECK UP, FOOT PAIN Reflux issues swallowing DYSPHAGIA Reason for Visit Dysphagia Screening for intestinal cancer Chief Complaint Admit Date Annual/Physical November 28, 2024 12:58 pm Reason for Visit Admit Date Barretts esophagus November 28, 2024 12:58 pm Elevated hemoglobin A1c November 28, 2024 1 2:58pm Hiatal hernia with gastroesophageal refl ux November 28, 2024 12:58pm Hyperlipidemia November 28, 2024 12:58 pm Chief Complaint Admit Date Annual/Physical November 28, 2024 12:58 pm E ORDERS December 12, 2024 8:14 am GERD/HIATAL HERNIA December 12, 2024 12:1 2pm Reason for Visit Admit Date Barretts esophagus November 28, 2024 12:58 pm Elevated hemoglobin A1c November 28, 2024 1 2:58pm Hiatal hernia with gastroesophageal refl ux November 28, 2024 12:58pm Hyperlipidemia November 28, 2024 12:58 pm Barretts esophagus December 12, 2024 12:1 2pm Schatzki's ring of distal esophagus December 12, 2024 12:12pm Additional Source Comments (unrecognized sect ion and content) No Status Records FoundNo Status Records Found INFORMATION SOURCE (unrecogn ized section and content) DATE CREATED AUTHOR 06/14/2018 [facility] DATE CREATED AUTHOR AUTHOR'S ORGANIZ ATION 12/24/[facility] Goals (unrecognized section and content) Goals may be documented in a n alternate sectionGoals may be documented in an alternate sectionGoals may be documented in an alternate sectionGoals may be documented in an alternate sectionGoals may be documented in an alternate section Care Teams (unrecognized sec tion and content) Team Status: Active Member Role Status Dates Dr. Susie Giron MD Primary Care Provider Active Team Status: Inactive Member Role Status Dates Dr. Susie Giron MD Primary Care Provider Active Start: November 28, 2024 End: November 28, 2024 Dr. Susie Giron MD Attending Provider Active Start: November 28, 2024 End: November 28, 2024 Team Status: Active Member Role Status Dates Dr. Susie Giron MD Primary Care Provider Active Start: December 12, 2024 Dr. Susie Giron MD Attending Provider Active Start: December 12, 2024 Dr. Susie Giron MD Referring Provider Active Start: December 12, 2024 Team Status: Inactive Member Role Status Dates Dr. Susie Giron MD Primary Care Provider Active Start: December 12, 2024 End: December 12, 2024 Dr. Susie Giron MD Referring Provider Active Start: December 12, 2024 End: December 12, 2024 Dr. Joshua Villalobos MD Attending Provider Active Start: December 12, 2024 End: December 12, 2024 Team Status: Inactive Member Role Status Dates Dr. Susie Giron MD Primary Care Provider Active Start: December 12, 2024 End: December 12, 2024 Dr. Susie Giron MD Attending Provider Active Start: December 12, 2024 End: December 12, 2024 Dr. Susie Giron MD Referring Provider Active Start: December 12, 2024 End: December 12, 2024 FOR RECORDS PERTAINING TO PATIENTS WHO ARE OR HAVE BEEN ENROLLED IN A CHEMICAL DEPENDENCY/SUBSTANCEABUSE PROGRAM, SOME INFORMATION MAY BE OMITTED. This clinical summary was aggregated from multiple sources. Caution should be exercised in using it in the provision of clinical care. This summary normalizes information from multiple sources, and as a consequence, information in this document may materially change the coding, format and clinical context of patient data. In addition, data may be omitted in some cases. CLINICAL DECISIONS SHOULD BE BASED ON THE PRIMARY CLINICAL RECORDS. [facility] [employer] provides no warranty or guarantee of the accuracy or completeness of information in this document.
== END 2024-12-25 12:01 | disposition home or self-care (01) ==
LOC: EN 09:24 → AC 09:25
PROVIDERS: PCP Internal Medicine; Referring Provider Internal Medicine; Visit Provider Surgery
PROC: 0DJ08ZZ Inspection of Upper Intestinal Tract, Via Natural or Artificial Opening Endoscopic (ICD-10-PCS; CPT 43235; principal; 2024-12-25 10:25)
DX: K22.70 Barrett's esophagus without dysplasia (principal); M06.9 Rheumatoid arthritis, unspecified; E11.9 Type 2 diabetes mellitus without complications; K22.2 Esophageal obstruction; K44.9 Diaphragmatic hernia without obstruction or gangrene; K21.9 Gastro-esophageal reflux disease without esophagitis; Z87.19 Personal history of other diseases of the digestive system; Z79.84 Long term (current) use of oral hypoglycemic drugs; Z79.899 Other long term (current) drug therapy; Z87.891 Personal history of nicotine dependence
CPT/HCPCS: 43249; 43239; 82962; 88305; J2405

== ENCOUNTER → 2025-03-01 | Outpatient (CLI) | payer MEDICARE, SELFPAY ==
[2025-03-01 12:32] LABS: AST(SGOT) 15 U/L (<=37); Alanine Aminotransfer ALT/SGPT 19 U/L (<=46); Albumin, Serum 3.8 g/dL (3.4-4.8); Alkaline Phosphatase 82 U/L (40-129); Anion Gap 8 (5-15); BUN 12 mg/dL (4-19); BUN/Creat Ratio 13.7 RATIO (10-20); Calcium,Total 9.5 mg/dL (7.6-11.0); Carbon Dioxide 29.6 mmol/L (21.0-32.0); Chloride 99 mmol/L (98-108); Globulin 3.3 g/dL (2.2-4.2); Glucose 147 mg/dL (70-99); Potassium 4.7 mmol/L (3.3-5.1)
== END | disposition home or self-care (01) ==
LOC: LAB 11:11
PROVIDERS: PCP Internal Medicine; Referring Provider Internal Medicine; Visit Provider Internal Medicine
DX: E11.9 Type 2 diabetes mellitus without complications (principal)
CPT/HCPCS: 36415; 80053; 83036